=== PATIENT | female | born 1950 | race Caucasian/White ===

== ENCOUNTER 2018-08-18 12:23 | Inpatient (IN) | payer MEDICARE, OTHER, SELFPAY ==
[2018-08-14 13:01] VITALS: BMI 32.8
[2018-08-18] VITALS (27 sets, daily range): BP systolic 89–156; BP diastolic 45–85; PULSE 73–92; RESP 12–24; TEMP 35.8–36.7; O2SAT 88–98; BMI 32.8
--- NOTE | 2018-08-18 | DI.RAD.S_ITS ---
PROCEDURE: XR LUMBAR SPINE 2-3V INDICATIONS: L-5 S1 TLIF TECHNIQUE: 2 views of the lumbar spine were acquired. COMPARISON: [facility] [place], CR, XR LUMBAR SPINE 2 OR 3 VIEWS, 07/24/2018, 15:09. FINDINGS: Intraoperative images demonstrating L5-S1 posterior fixation is present. There is good anatomic alignment. Hardware appears intact. IMPRESSION: L5-S1 fixation as above. Dictated by: Sarah Abarca M.D. on 08/18/2018 at 18:21 Approved by: Sarah Abarca M.D. on 08/18/2018 at 18:22
--- NOTE | 2018-08-18 14:46 | PM.PREOP ---
Pre-operative Note Interval Note Pre-op Check: Yes History & Physical Reviewed by Physician, Yes Exam Performed and Yes History & Physical exam performed today by Physician Changes: No
[2018-08-18] MEDS: CEFAZOLIN 2 GM/100 ML FROZ.PIGGY IV ×2 (15:20→22:56)
--- NOTE | 2018-08-18 16:01 | SUR.OPER ---
Prone on spine table, head in foam head support, padded chest and pelvic supports, gel pad at knees, lower legs supported by pillows; nipples, genitalia and toes free of pressure, arms secured on foam padded arm boards at <90 degrees abduction. Tape over blanket at thigh secured to table.
[2018-08-18] MEDS: BUPIVACAINE 0.25% W/ EPI VIAL 30 ML INJ (16:09)
[2018-08-18] MEDS: BUPIVACAINE LIPOSOME 266 MG/20 ML VIAL INJ (16:09)
[2018-08-18] MEDS: ACETAMINOPHEN IV 1,000 MG/100 ML VIAL 400 MG IV (17:25)
--- NOTE | 2018-08-18 17:45 | PM.OP.1 ---
Operative Date/Time/Diagnoses Date of procedure: 08/18/18 Time of procedure: 15:46 Pre-op diagnosis: 1. L5-S1 spondylolisthesis 2. L4-5, L5-S1 spinal stenosis 3. L4-5, L5-S1 spondylosis with radiculopathy Post-op diagnosis: same Procedure & Clinicians Procedure: 1. L5-S1 Postero-lateral and posterior interbody fusion 2. L5-S1 interbody cage placement. 3. L5-S1 decompressive laminectomy with bilateral facetecomies 4. L5-S1 Posterior non-segmental instrumentation 5. L4-5 right hemilainectomy 6. [place] of bone marrow from iliac crest 7. Utilization of microsurgical technique and operating microscope Same procedure as scheduled: Yes Indications: Patient has been having chronic back pain and worsening lumbar radiculopathy. Patient failed multiple conservative management with worsening pain weakness and numbness in her lower extremity. Patient has been having difficulty performing activity of daily living. After discussing risks benefits of treatment options, patient elected proceed with surgery. Surgeon: Mendoza Wilkins Bridge Toll Collector: Galilea Nicole Click Yes if Unassisted: No Anesthesia Type: General Operative Notes Closure Type: primary Specimen(s): none sent Implants & Drains: Globus revolve screws, Rise cage Estimated Blood Loss (mL): 50 Blood products transfused: none Procedure in detail: Patient was seen in the preoperative area. Risks and benefits of the surgery was discussed with the patient. Informed consent was obtained from the patient and placed in the chart. Surgical site was marked. Patient was taken to the operative room. General anesthesia was administered. Prophylactic antibiotic was given to the patient less than 30 min before the incision was made. Patient was placed into a prone position on the Ricky table. Patient's back was then prepped and draped in the sterile fashion. Time-out was performed at this time. Using AP and lateral C-arm imaging the interval between L4-5 L5-S1 was identified and marked on patient's back. A 2 inch incision 2 in from midline was made on the right side first. The fascia was incised in line with skin incision. Globus MARS retractors was placed inside the incision and docked onto the L5 lamina. Using microsurgical technique and operating microscope, a L5 laminectomy and L5-S1 facetectomy was performed using a Kerrison rongeur. The disc space at L5-S1 was identified. And a total diskectomy was performed at L5-S1 level. The endplates were decorticated using a rasp and shaver. The total diskectomy and decortication was performed at L5-S1 level in order to to accomplish a L5-S1 fusion. The local bone from the laminectomy and facetectomy was saved for local bone grafting. After the total diskectomy and decortication was completed, Globus viacell bone graft material was combined with local bone that was harvested earlier. At this time, a separate skin is incision was made over the iliac crest. A Jamshidi needle was inserted into the iliac crest through a separate skin incision. 5 cc of bone marrow aspiration was obtained through the separate skin incision using a Jamshidi needle from the iliac crest. The bone marrow aspiration was combined with local bone and the via cell bone grafting material. The bone grafting material was placed into the L5-S1 interbody space along with a expandable cage. The cage was expanded to its maximum height using the torque limiting screwdriver. At this time the MARS retractor was redirected over the L5 lamina. Using microsurgical technique and operating microscope, a L4-5 heminectomy was performed using the Kerrison rongeur. The ligamentum flavum was also resected at the side of the hemilaminectomy for further decompression of the epidural space. At this time a mirror image incision was made on the left side. The fascia was incised in line with the skin incision. Globus MARS retractor was inserted and docked onto the L5-S1 posterolateral gutter. Using the power drill, posterior-lateral decortication was performed at L5-S1 level until bleeding cortical bone was identified. The remaining bone grafting material was placed into the L5-S1 posterior lateral gutter he order to accomplish posterolateral fusion at the L5-S1 level. Using the double C-arm technique, pedicle screws were placed into the L5 and S1 pedicles bilaterally. This was done by placing the Jamshidi needle into the pedicles, then placing the guidewires over the Jamshidi needle, and finally placing the cannulated screws over the guidewires bilaterally. After the pedicle screws were placed, 2 titanium rods was locked into the heads of the pedicle screws using locking caps and torque limiting screwdriver.After all the hardware was placed, and confirmed with AP and lateral C-arm imaging, the wound was then irrigated with sterile normal saline and packed with Ray-Marissa gauze for 3 min to accomplish hemostasis. After the gauze was removed the deep fascia was closed with #1 Vicryl suture. The subcutaneous layer was closed with 2-0 Vicryl. The skin was closed with skin javi.Patient tolerated the procedure well. There were no complications. Complications: none Condition: stable Disposition: PACU Plan for aftercare: Admit to inpatient hospital
[2018-08-18] MEDS: fentaNYL 100 MCG/2 ML INJ 50 MCG IV ×2 (17:58→18:32)
[2018-08-18] MEDS: LORazepam 2 MG/ML SYRINGE 0.5 MG IV (18:38)
[2018-08-18] MEDS: LACTATED RINGERS 1,000 ML 42 ML IV (18:45)
[2018-08-18] MEDS: LACTATED RINGERS 500 ML 1000 ML IV (18:46)
[2018-08-18] MEDS: hydrOXYzine 50 MG/ML INJ 25 MG IM (19:10)
--- NOTE | 2018-08-18 19:24 | SUR.PHASEI ---
PACU stay with low BP's versus preop and also restless behavior. Reported tenseness to back that was addressed with Lorazepam, Vistaril and some Fentanyl. BPs also addressed with fluid bolus. BP Readings did increase and pain at 4. On and off o2. Discussed with Dr Raya and due to essentially stable course of VS in PACU will transfer to AC now.
[2018-08-18] MEDS: SODIUM CHLORIDE 0.9% 1,000 ML 100 ML IV (19:59)
--- NOTE | 2018-08-18 20:16 | RT ---
BREATH SOUNDS ARE CLEAR. RR = 16.
[2018-08-18] MEDS: ONDANSETRON 4 MG/2 ML INJ IV (20:32)
--- NOTE | 2018-08-18 21:22 | PC.ADMIT ---
[facility] Admission Note: The patient,Shannon Vanegas,68 y/o, was given written information regarding hospital policies, unit procedures and contact persons. Patient's smoking status: Current every day smoker. Vital Signs - 8 hr 08/18/18 17:53 08/18/18 17:58 08/18/18 18:03 Temperature 96.5 F L Pulse Rate 90 90 82 Respiratory Rate 20 18 15 Blood Pressure 101/54 L 108/62 108/51 L Pulse Oximetry 88 L 93 97 08/18/18 18:07 08/18/18 18:12 08/18/18 18:18 Temperature Pulse Rate 76 78 84 Respiratory Rate 12 16 20 Blood Pressure 94/50 L 112/58 L 106/50 L Pulse Oximetry 96 94 92 08/18/18 18:22 08/18/18 18:27 08/18/18 18:32 Temperature Pulse Rate 84 76 78 Respiratory Rate 20 24 18 Blood Pressure 97/54 L 94/45 L 94/51 L Pulse Oximetry 98 98 95 08/18/18 18:38 08/18/18 18:47 08/18/18 18:52 Temperature 96.6 F L Pulse Rate 80 84 82 Respiratory Rate 14 20 20 Blood Pressure 89/49 L 94/47 L 91/52 L Pulse Oximetry 97 96 94 08/18/18 18:57 08/18/18 19:03 08/18/18 19:08 Temperature Pulse Rate 84 88 80 Respiratory Rate 16 20 15 Blood Pressure 92/49 L 90/52 L 102/64 Pulse Oximetry 94 92 91 08/18/18 19:12 08/18/18 19:20 08/18/18 19:23 Temperature 96.5 F L Pulse Rate 84 84 86 Respiratory Rate 20 20 20 Blood Pressure 104/65 117/68 119/49 L Pulse Oximetry 94 93 94 08/18/18 19:35 08/18/18 20:05 08/18/18 20:13 Temperature 97.8 F 97.2 F L Pulse Rate 77 73 Respiratory Rate 16 16 Blood Pressure 96/47 L 124/58 L Pulse Oximetry 93 94 96 08/18/18 20:14 08/18/18 20:35 Temperature 98.1 F Pulse Rate 85 Respiratory Rate 16 Blood Pressure 117/54 L Pulse Oximetry 96 94 Pt arrived to floor via bed from PACU with rns. Pt awake, sleepy but arouses to voice. Pt given direction on all hospital procedures. Pt drank some water then wanted some pudding and then tried to get up as she stated she wanted to dangle her legs, and pt became nauseous. given zofran and pt laid back down. Pt has oxygen on 1L nc, she takes it off frequently and itches her nose and sometimes forgets to put it ebenezer k on. pulse ox remained on. pt vss. Pt answered all admission questions. bed alarm on, fan provided, will continue to monitor pt for safety.
[2018-08-18] MEDS: ACETAMINOPHEN 325 MG TABLET 650 MG PO (22:53)
[2018-08-18] MEDS: OXYCODONE IR 10 MG TABLET PO (22:53)
[2018-08-19] VITALS (9 sets, daily range): BP systolic 109–134; BP diastolic 56–70; PULSE 16–90; RESP 16–18; TEMP 36–37.6; O2SAT 91–97
[2018-08-19] MEDS: ACETAMINOPHEN 325 MG TABLET 650 MG PO ×3 (04:18→17:03)
[2018-08-19] MEDS: SODIUM CHLORIDE 0.9% 1,000 ML 100 ML IV (06:16)
[2018-08-19] MEDS: PANTOPRAZOLE 40 MG TABLET PO (06:16)
[2018-08-19] MEDS: CEFAZOLIN 2 GM/100 ML FROZ.PIGGY IV (06:38)
--- NOTE | 2018-08-19 07:56 | PM.PNPO.1 ---
Subjective Date Patient Seen: 08/19/18 Time Patient Seen: 07:56 Interval history: Patient is postop day 1. Status post lami/fusion by Dr. Wilkins. Has been up to the bedside commode to go to the restroom. Pain tolerable. Still some tingling and right foot. Patient plans to go home after discharge but she lives alone. Exam Vital Signs (past 8 hours): - 08/19/18 00:20 08/19/18 04:17 Temperature 97.9 F 98.0 F Pulse Rate 90 16 L Respiratory Rate 16 16 Blood Pressure 134/65 123/67 Pulse Oximetry 92 94 Oxygen Delivery Method Room Air Oxygen Flow Rate 0 Narrative Exam Narrative: Patient in bed. Appears comfortable. Alert orient x3. Back dressing clean dry and intact. Bilateral calves soft and nontender. Tingling in in the right foot. Full sensation in left foot. 5/5 BLE strength. Objective Labs Result Diagrams: 08/19/18 05:58 Labs: Laboratory Results - last 24 hr 08/19/18 05:58 Hgb 12.0 Hct 36.0 Assessment & Plan Post-op Postoperative Procedures Operation Date: 08/18/18 14:45 Actual Procedures Side Surgeon p L4-5 Right hemilaminectomy, L5-S1 TLIF w/Posterior Instru Mendoza Wilkins MD Postop day 1. Ambulate with physical therapy today. Continue pain medication as needed. Plans for the patient to be even Tuyet discharged home but she may need to go to SNF if she is slow to ambulate. Patient lives alone.
--- NOTE | 2018-08-19 09:02 | CM.DANOTE ---
Discharge Planning Assessment Continued: Patient is a 68yr old female admitted to [facility] for lami/fusion performed by Dr. Wilkins on 08-19-18. PCP is Dr. Rosa Conner at [facility]. Primary payor is 1)Medicare 2)[employer]. Met with patient explained CM/SW role. Patient resting in bed comfortably POD#1. Therapy scheduled to see patient today. Patient reports that she resides alone but has plenty of support. Patient completely I with ADL's prior to surgery. Patient reports that she has all needed DME for home use. Patient preference is home. Patient aware of SNF option if recommend but again prefers home. Patient does have 5 stairs to enter her residence but does have railing. Spoke with ASSESSMENT NURSE whom reports patient up to [facility] today. P: Pending. Patient prefers home when medically stable. Patient does not feel like she would be prepared to d.c today. Patient aware that if anything changes or if she does poorly with therapy that SNF is option. Discharge Planning/Care Management CM Discharge Assessment Start: 08/19/18 08:58 Freq: Status: Active Protocol: Document 08/19/18 08:58 KJS (Rec: 08/19/18 09:02 KJS [id number]) Discharge Planning Assessment Assigned Restrooms Or Lounges Maid YAYA Castillo Contact Information Torsten Rowell [phone] ( son) Advance Directives? No: I'm working on it Advance Directives on File No History Provided By Patient Has Patient been admitted in last 30 No days? Prior Living Arrangements Mobile home Household Members none Type of transporation used prior to Drives own vehicle admit Independent with ADL's Yes Is patient alert and oriented? Yes Caregiver for Another No DME Already Rented / Owned FWW / Walker Cane Barriers to Discharge No Comment Pending therapy evaluation. Discharge Plan Home Transportation Arrangement Patient has family/support that can provide transport. Additional Comment Patient prefers home. Therapy evaluations currently pending. Whiteboard Updated in Patient Room with Yes name and ext. # of Restrooms Or Lounges Maid Review Status In Process Please Provide Date Initial DC 08/19/18 Assessment Was Performed Next Review Type Continued Stay Review Pre-Anesthesia Assessment Start: 08/14/18 13:01 Freq: Status: Complete Protocol: Document 08/14/18 13:01 CAB (Rec: 08/14/18 13:49 CAB [id number]) Pre-Anesthesia Assessment Patient Also Known As Harmon (AKA) Patient Information Reviewed Via Phone Assessment Assessment Completed With Patient Lab Results BMP/CMP CBC EKG Primary Care Provider Rosa Conner Medical Clearance Received Yes Seen Specialist in Last 12 Months Yes Specialist Seen [facility]er [employer]iture Orthopedist Comment PCP clearance 08/01/18 to med records to be scanned to chart Primary Language French Director Marketing Required No Height 165.1 cm Weight 89.358 kg Body Mass Index (BMI) 32.8 Hearing Ability Normal Visual Assist Glasses Dentition Type Teeth, Natural Present Teeth, Missing Dental Implants Barriers to Learning None Other Aids No Hx Anesthesia Reactions No: I'm slow to wake up Hx Family Anesthesia Reaction No Hx Malignant Hyperthermia No Hx Blood Transfusions No Anesthesia Review Requested No Resource Development Director No alcohol intake current alcohol intake frequency a few times a month Smoking Status Current every day smoker Tobacco type cigarettes Smoking cigarettes per day 15 how long ago did patient quit smoking Has been smoking x 50 years Substance Use Type does not use Pain Present Pain Reported Musculoskeletal Symptoms Abnormal Gait Back Pain Difficulty Walking Joint Pain Numbness Radiating Pain into Limb History of Falling (Recent or History of No ) Patient is completely paralyzed or No completely immobile Mental Status Oriented to own ability Is patient on oxygen? No Does patient have MOY/SOB No Hx Sleep Apnea No Suspected Sleep Apnea No Currently Taking a Beta Sofy No Can You Climb a Flight of Stairs Without Yes SOB Hx Chest Pain No Hx SOB No Hx Syncope or Dizziness No Anti-Coagulant Therapy No Has a Truck Greaser No Cardiac Testing No Hx Pacemaker/ICD No Pacemaker Rep Required? No Cardiac Clearance Received Not Applicable Diet Type At Home Regular dysphagia No Genitourinary Symptoms Hematuria Urinary Catheter Present No Hx Urinary Self Catheterization No Comment Hematuria, chronic Diabetes Yes HgbA1C 6.5 Date 08/01/18 Patient No Lactating No Hx Drug Resistant Organism No Presence of External or Internal Medical No Devices Have you traveled outside the [facility] States in the last 30 days? Marital Status / Lives With none Prior Living Arrangements Mobile home Number of Floors (Floors) One Floor Number of Stairs To Enter/Railing? 5 stairs, railing present Support System Family Friend(s) Does the Patient Have Assistance After Yes Surgery Patient Discharge Plan Description Return Home Comment Pt advised 2-3 day length stay per surgeon's office Feels Safe in Current Environment Yes Been Physically Hurt or Threatened By a No Person in Current Environment Do you have thoughts of harming yourself None or others? Are you currently considering suicide? No Do you have a plan to hurt yourself or No Plan others? Do You Have Any Spiritual Beliefs That No May Affect Your HC Choices? Do You Have Any Cultural Practices That No May Affect Your HC Choices? Comment Pro Who Can We Speak to About Patient's Care Family, friends Identifying Code for Release of Patient Declines to issue Information Health Care Proxy/Next of Kin Torsten Rowell (son) Health Care Proxy Emergency Contact Name Irineo Rowell (son) Emergency Contact Advance Directives? No: I'm working on it Advance Directives on File No Requested Patient Bring Advanced Not Applicable Directives DOS Power of Carpenter Mold No PAC Instructions Durable medical equipment Medications to take/avoid Nasal antibiotic No ETOH/petroleum product on skin DOS NPO Post-op transportation Pre-surgical wash Sturdy shoes/comfortable clothes Do not bring valuables and remove jewelry
[2018-08-19] MEDS: LISINOPRIL 10 MG TABLET PO (09:15)
[2018-08-19] MEDS: ESTROGENS, CONJUGATED 0.3 MG TABLET PO (09:15)
[2018-08-19] MEDS: DOCUSATE 100 MG CAPSULE PO ×2 (09:15→20:18)
[2018-08-19] MEDS: AMLODIPINE 5 MG TABLET PO (09:15)
[2018-08-19] MEDS: hydrOXYzine pamoate 25 MG CAPSULE PO ×2 (09:16→17:03)
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
[2018-08-19] MEDS: OXYCODONE IR 10 MG TABLET PO ×3 (11:52→20:19)
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
--- NOTE | 2018-08-19 14:58 | PT.IPTN ---
Current Diagnoses Spondylolisthesis, lumbosacral region (08/18/18) Other spondylosis with radiculopathy, lumbar region (08/18/18) Spinal stenosis, lumbar region without neurogenic claudication (08/18/18) Surgery Performed Operation Date: 08/18/18 14:45 Actual Procedures p L4-5 Right hemilaminectomy, L5-S1 TLIF w/Posterior Angella Wilkins MD Physical Therapy Treatment Note M2 PT-IP Current Condition Start: 08/19/18 11:49 Freq: NEEDED Status: Active Protocol: Document 08/19/18 10:26 AB (Rec: 08/19/18 12:01 AB [id number]) Physical Therapy Current Condition Current Condition Evaluation Date 08/19/18 Treatment Diagnosis s/p L5S1 fusion, laminectomy, L4-5 hemilaminectomy; difficulty in walking Onset Date 08/18/18 Precautions Lumbar Precautions Log Roll No Twisting Limit Bending Lifting Restriction of 10 lbs Gait Belt above Incisional Area M3 PT-IP Subjective Start: 08/19/18 11:49 Freq: NEEDED Status: Active Protocol: Document 08/19/18 15:52 AB (Rec: 08/19/18 15:56 AB [id number]) Subjective Physical Therapy Visit Type Type Treatment Note Visit Start Time 14:58 Visit Stop Time 15:13 Total Visit Minutes 15 Number of HYDROELECTRIC PRODUCTION TECHNICIAN Visits 0 Physical Therapy Visit Comments Patient Comments pt agreeable to do PT Therapy Pain Assessment Pain When Pain Assessed During Mobility Pain Present Pain Present Pain Reported Location Back Intensity 8 Scale Used Numeric (1 - 10) Description With Movement Pain Management Techniques Re-positioning Timing of Activity with Medications M4 PT-IP Mobility and Gait Start: 08/19/18 11:49 Freq: NEEDED Status: Active Protocol: Document 08/19/18 15:52 AB (Rec: 08/19/18 15:56 AB [id number]) PT-Bed Mobility Assessment Rolling Type of Rolling Log Rolling Level of Assist Standby Assistance Sit to Supine Sit to Supine Standby Assistance PT-Transfer Assessment Sit to and From Stand Sit to and from Stand Standby Assistance Equipment Transfer Assistive Device Gait Belt Front Wheeled Walker Orthotic/Prosthetic Devices or Brace: No Gait Assessment Gait Gait Assistance Required: Standby Assistance Distance (Feet) 250 Able to Maintain Weight Bearing Status Yes During Gait Assistive Devices Assistive Device Gait Belt Front Wheeled Walker Orthotic/Prosthetic Devices or Brace: No Gait Deviations General Gait Pattern Antalgic Factors Limiting Gait Function Factors Limiting Gait Function Decreased Activity Tolerance Decreased Sensation Decreased Strength Limited Range of Motion Pain Poor Balance Stair Climbing Assessment Evaluation Level of Assist On Stairs Standby Assistance Devices Stair Climbing Assistive Devices Left Railing Technique/Endurance Stair Climbing Direction Ascend and Descend Stair Climbing Technique Step to Step Number of Steps Climbed 3 Query Text: Stair Climbing Set # Repetitions (reps) 2 Comments Stair Climbing Comments pt hold on to L rail with B hands M5 PT-IP Objective Assessments Start: 08/19/18 11:49 Freq: NEEDED Status: Active Protocol: Document 08/19/18 10:26 AB (Rec: 08/19/18 12:01 AB [id number]) Orientation Orientation/Cognition Level of Alertness Alert Orientation Name Age Birthday Month Date Year Day of Week Place Situation Safety Awareness Understands Safety Issues Gross Range of Motion Lower Extremity ROM Assessment Within Functional Limits Strength Lower Extremity Strength Assessment Within Functional Limits Sensation Assessment Sensation Gross Sensation Right LE Impaired Sensation Description Tingling Muscle Tone Muscle Tone WNL Yes M6 PT-IP Treatment Start: 08/19/18 11:49 Freq: NEEDED Status: Active Protocol: Document 08/19/18 15:52 AB (Rec: 08/19/18 15:56 AB [id number]) Physical Therapy Treatment Education Education Provided Precautions Safety M7 PT-IP Assessment and Plan Start: 08/19/18 11:49 Freq: NEEDED Status: Active Protocol: Document 08/19/18 15:52 AB (Rec: 08/19/18 15:56 AB [id number]) PT Summary Assessment and Plan Potential Rehabilitation Potential Good Summary Impairments Pain ROM Strength Balance Sensation Bed Mobility Transfers Gait Activity Tolerance Progress Towards Goals Progressing Toward Goals Assessment Summary Pt doing well with mobility and able to do ambulation and stair climbing with SBA and cues for safety. pt may go home when medically stable and will have friends and family to assist her when needed. Goals Bed Mobility Goal Independent Transfer Goal Independent Gait Goal Independent Gait Distance 250 Other Goals up/down 5 steps with L rail ascending Days to Meet Goals 3 Frequency of Treatment Frequency Of Treatment Twice a Day Treatment Plan Physical Therapy Treatment Plan Bed Mobility Training Transfer Training Gait Training Therapeutic Exercise Balance Retraining Post Op Education Discharge Planning Hot or Cold Pack Neuromuscular Re-ed Coordination Retraining Manual Therapy Other Recommendations and Next Treatment ambulation, stair climbing , Focus bed mobility Recommendations To Nursing Amount of Assist Needed Standby Assistance Discharge Recommendations PT Discharge Recommendations Home with Assistance
[2018-08-19] MEDS: SENNOSIDES 8.6 MG TABLET 17.2 MG PO (20:18)
[2018-08-19] MEDS: AMITRIPTYLINE 25 MG TABLET PO (20:19)
[2018-08-19] MEDS: FENOFIBRATE 48 MG TABLET PO (20:19)
[2018-08-19] MEDS: ATORVASTATIN 20 MG TABLET 80 MG PO (20:19)
--- NOTE | 2018-08-19 21:03 | PC.NURSE ---
Assumed care of pt from outgoing shift at 1500 this day. Pt awake. had been walking with pt and reported 6/10 pain, but wanted to wait for pain medication until dinner time as it sometimes makes her nauseous she thinks. pt states as long as she doesn't move too much then she does ok. Pt sitting in bed. one assist with walker to BR has been steadily getting better with bed mobility. pt ambulates steady gait. she states walking is the most comfortable thing. pt wanted to eat dinner in bed as she was tired from being up in chair for a while today. Pt given pain meds. per JAN. tolerated, no nausea reported. Pt compliant with nursing assessments. dressing to back c.d.i. not yet changed. Pt uses call light. belongings within reach. bed alarm on for safety. will continue to monitor pt for safety. 2030-pain meds administered with evening meds, pt ate some pudding. tolerated, will continue to monitor.
[2018-08-20] VITALS (7 sets, daily range): BP systolic 101–117; BP diastolic 52–79; PULSE 76–85; RESP 14–18; TEMP 36.2–37.2; O2SAT 90–97
[2018-08-20] MEDS: hydrOXYzine pamoate 25 MG CAPSULE PO ×2 (00:11→05:02)
[2018-08-20] MEDS: OXYCODONE IR 10 MG TABLET PO ×6 (00:11→21:35)
[2018-08-20] MEDS: PANTOPRAZOLE 40 MG TABLET PO (06:39)
--- NOTE | 2018-08-20 07:24 | PM.PNPO.1 ---
Subjective Date Patient Seen: 08/20/18 Time Patient Seen: 07:24 Interval history: POD #2 L4-5 hemilaminectomy, L5-S1 TLIF with Dr. Wilkins. Her pain is well controlled. She notes difficulty with log rolling and getting out of bed. She is urinating on her own. She has been having some nausea with oxycodone. Exam Vital Signs (past 8 hours): - 08/19/18 23:35 08/20/18 04:55 Temperature 99.4 F 98.9 F Pulse Rate 84 84 Respiratory Rate 17 18 Blood Pressure 111/56 L 110/72 Pulse Oximetry 94 94 Oxygen Delivery Method Room Air Oxygen Flow Rate 0 Narrative Exam Narrative: Patient lying in bed in no acute distress. She is alert and oriented x3. Calves are soft, compressible, and nontender bilaterally. She is able to actively dorsiflex and plantarflex. Objective Labs Result Diagrams: 08/19/18 05:58 Assessment & Plan Post-op (1) S/P lumbar fusion: Current Visit: Yes Status: Acute Postoperative Procedures Operation Date: 08/18/18 14:45 Actual Procedures Side Surgeon p L4-5 Right hemilaminectomy, L5-S1 TLIF w/Posterior Instru Mendoza Wilkins MD POD #2 L4-5 hemilaminectomy, L5-S1 TLIF with Dr. Wilkins. Continue current pain control. Continue ambulating with PT. Plan to discharge home tomorrow with Zofran, Vistaril, and oxycodone. Patient would benefit from continued physical therapy and pain control and likely discharge home tomorrow.
[2018-08-20] MEDS: DOCUSATE 100 MG CAPSULE PO ×2 (08:12→21:37)
[2018-08-20] MEDS: ESTROGENS, CONJUGATED 0.3 MG TABLET PO (08:13)
[2018-08-20] MEDS: ACETAMINOPHEN 325 MG TABLET 650 MG PO (08:14)
[2018-08-20] MEDS: SODIUM CHLORIDE 0.9% FLUSH 10 ML IV (09:48)
--- NOTE | 2018-08-20 11:45 | PT.IPTN ---
Current Diagnoses Spondylolisthesis, lumbosacral region (08/18/18) Other spondylosis with radiculopathy, lumbar region (08/18/18) Spinal stenosis, lumbar region without neurogenic claudication (08/18/18) Arthrodesis status (08/18/18) Surgery Performed Operation Date: 08/18/18 14:45 Actual Procedures p L4-5 Right hemilaminectomy, L5-S1 TLIF w/Posterior Angella Wilkins MD Physical Therapy Treatment Note M2 PT-IP Current Condition Start: 08/19/18 11:49 Freq: NEEDED Status: Active Protocol: Document 08/19/18 10:26 AB (Rec: 08/19/18 12:01 AB [id number]) Physical Therapy Current Condition Current Condition Evaluation Date 08/19/18 Treatment Diagnosis s/p L5S1 fusion, laminectomy, L4-5 hemilaminectomy; difficulty in walking Onset Date 08/18/18 Precautions Lumbar Precautions Log Roll No Twisting Limit Bending Lifting Restriction of 10 lbs Gait Belt above Incisional Area M3 PT-IP Subjective Start: 08/19/18 11:49 Freq: NEEDED Status: Active Protocol: Document 08/20/18 09:30 GGD (Rec: 08/20/18 11:45 GGD [id number]) Subjective Physical Therapy Visit Type Type Treatment Note Visit Start Time 08:55 Visit Stop Time 09:30 Total Visit Minutes 35 Number of TEXTILE DYER Visits 1 Physical Therapy Visit Comments Patient Comments Pt willing to get up. Therapy Pain Assessment Pain When Pain Assessed At Rest Pain Present Pain Present Pain Reported Location Back Intensity 4 Scale Used Numeric (1 - 10) Pain Management Techniques Apply Cold Re-positioning Timing of Activity with Medications M4 PT-IP Mobility and Gait Start: 08/19/18 11:49 Freq: NEEDED Status: Active Protocol: Document 08/20/18 09:30 GGD (Rec: 08/20/18 11:45 GGD [id number]) PT-Bed Mobility Assessment Rolling Type of Rolling Log Rolling Level of Assist Standby Assistance Supine to Sit Supine to Sit Contact Guard Assistance Scooting Scooting to Edge of Bed Standby Assistance PT-Transfer Assessment Sit to and From Stand Sit to and from Stand Standby Assistance Equipment Transfer Assistive Device Gait Belt Front Wheeled Walker Orthotic/Prosthetic Devices or Brace: No Transfers Transfer Destination Chair Gait Assessment Gait Gait Assistance Required: Standby Assistance Distance (Feet) 230 Able to Maintain Weight Bearing Status Yes During Gait Assistive Devices Assistive Device Gait Belt Front Wheeled Walker Orthotic/Prosthetic Devices or Brace: No Gait Deviations General Gait Pattern Antalgic Factors Limiting Gait Function Factors Limiting Gait Function Decreased Activity Tolerance Decreased Strength Pain Comments Gait Comments Pt C/O nausea after gait. BP after activity in sitting 123/ 63 M5 PT-IP Objective Assessments Start: 08/19/18 11:49 Freq: NEEDED Status: Active Protocol: Document 08/19/18 10:26 AB (Rec: 08/19/18 12:01 AB [id number]) Orientation Orientation/Cognition Level of Alertness Alert Orientation Name Age Birthday Month Date Year Day of Week Place Situation Safety Awareness Understands Safety Issues Gross Range of Motion Lower Extremity ROM Assessment Within Functional Limits Strength Lower Extremity Strength Assessment Within Functional Limits Sensation Assessment Sensation Gross Sensation Right LE Impaired Sensation Description Tingling Muscle Tone Muscle Tone WNL Yes M6 PT-IP Treatment Start: 08/19/18 11:49 Freq: NEEDED Status: Active Protocol: Document 08/20/18 09:30 GGD (Rec: 08/20/18 11:45 GGD [id number]) Physical Therapy Treatment Education Education Provided Precautions Safety M7 PT-IP Assessment and Plan Start: 08/19/18 11:49 Freq: NEEDED Status: Active Protocol: Document 08/20/18 09:30 GGD (Rec: 08/20/18 11:45 GGD [id number]) PT Summary Assessment and Plan Summary Assessment Summary Pt needed increase in cueing. She improved with gait. She did have increase in nausea after ambulation. She needs improve with bed mobility and log roll. Frequency of Treatment Frequency Of Treatment Twice a Day Treatment Plan Other Recommendations and Next Treatment ambulation, stair climbing , Focus bed mobility Recommendations To Nursing Amount of Assist Needed Standby Assistance Discharge Recommendations PT Discharge Recommendations Home with Assistance
[2018-08-20] MEDS: ONDANSETRON 4 MG ODT PO ×2 (11:58→21:36)
--- NOTE | 2018-08-20 13:25 | OT.IP.TRT ---
Current Diagnoses Spondylolisthesis, lumbosacral region (08/18/18) Other spondylosis with radiculopathy, lumbar region (08/18/18) Spinal stenosis, lumbar region without neurogenic claudication (08/18/18) Arthrodesis status (08/18/18) Surgery Performed Operation Date: 08/18/18 14:45 Actual Procedures p L4-5 Right hemilaminectomy, L5-S1 TLIF w/Posterior Francoiseu - Mendoza Wilkins MD Occupational Therapy Treatment Note M2 OT-IP Current Condition Start: 08/19/18 14:51 Freq: Status: Active Protocol: Document 08/19/18 14:46 PJM (Rec: 08/19/18 15:05 PJM [id number]) Occupational Therapy Current Condition Current Condition Evaluation Date 08/19/18 Treatment Diagnosis decreased self care, functional mobility s/p L4-5 hemilami, L5-S1 PLIF Diagnosis Onset Date 08/18/18 Post Operative Precautions Lumbar Precautions Log Roll No Twisting Limit Bending Lifting Restriction of 10 lbs Gait Belt above Incisional Area M3 OT- IP Subjective and Pain Start: 08/19/18 14:51 Freq: Status: Active Protocol: Document 08/20/18 13:25 PJM (Rec: 08/20/18 14:51 PJM [id number]) OT- Subjective Occupational Therapy Visit Type Type Treatment Note Visit Start Time 12:45 Visit Stop Time 12:25 Total Visit Minutes 40 Occupational Therapy Visit Comments Patient Comments Pt too nauseous to participate this AM, now states: I am feeling much better now and really want to shower. Patient/Caregiver Goals to go home tomorrow, be able to golf by spring OT Pain Assessment Pain When Pain Assessed After Treatment Pain Present Pain Present Pain Reported Location Back Intensity 4 Scale Used Numeric (1 - 10) Description Aching Acute M4 OT- IP ADL's Start: 08/19/18 14:51 Freq: Status: Active Protocol: Document 08/20/18 13:25 PJM (Rec: 08/20/18 14:51 PJM [id number]) OT ADL-Grooming General Evaluation Grooming Ability Independent Comments OT Grooming Comments after education re: body mechanics OT ADL-Oral Care Comments Oral Care Comments after education re: body mechanics;pt has how counters with vessel sink at home OT ADL-Dressing General Eval Upper Body Dressing Ability Standby Assistance Lower Body Dressing Ability Standby Assistance Areas Needing Assistance Retrieving/Set-up of Clothing Underpants/Brief Assistive Devices Dressing Assistive Devices Gas Systems Worker Comments OT Dressing Comments Pt agreed to try sock aid tomorrow; declines long shoe horn OT ADL-Toileting General Evaluation Toileting Ability Independent Comments OT Toileting Comments provided education re: body mechanics, pt declines toilet paper aid OT ADL-Bathing Bathing Type Bathing Type Shower General Evaluation Bathing Ability Standby Assistance Areas Needing Assistance Retrieving/Setting Up Items Devices Bathing Equipment Long Handled Sponge or Foreclosure Paralegal Held Shower Sprayer Shower Chair with Arms Grab Bars Comments OT Bathing Comments provided education re: body mechanics and use of group billing coordinator with towel to dry lower extremities; pt's sister in law will provide SBA for showering at home M5 OT- IP IADL's Start: 08/19/18 14:51 Freq: Status: Active Protocol: Document 08/19/18 14:46 PJM (Rec: 08/19/18 15:05 PJM [id number]) OT-Instrumental Activities of Daily Living Deficits IADL Deficits Identified Deficits Home Safety Awareness Awareness of Need for Assistance at Home Good Awareness Ability to Problem Solve Emergency Able to Problem Solve Situations Home Safety Comments pt plans ot get [employer] call system Medication Management Medication Management No Deficits Identified Money Management Money Management No Deficits Identified Meal Preparation Meal Preparation Caregiver Provides Assist Meal Preparation Comments family (2 brothers and sisters in law) and friends will assist with grocery shopping and meals PRN Carpenters Carpenters Caregiver Provides Assist Carpenters Comments family and friends to assist PRN Driving Driving Caregiver Provides Assist Driving Comments family and friends to assist until pt able Document 08/20/18 13:25 PJM (Rec: 08/20/18 14:51 PJM [id number]) OT- Bed Mobility Assessment Sit to Supine Sit to Supine Assist Standby Assistance 1 Person Assistance Scooting Scooting to Edge of Bed Independent OT-Transfer Assessment Sit to and From Stand Sit to and from Stand Standby Assistance Technique Transfer Destination Bed Chair Shower Stall Transfer Technique Stand Step Pivot Devices Transfer Assistive Devices Gait Belt Front Wheeled Walker Comments Mobility Comments Pt needs min verbal cues for bed mobility technique OT- Gait Assessment Gait Gait Assistance Required: Contact Guard Assist Distance (Feet) 40 Assistive Devices Assistive Device Gait Belt Front Wheeled Walker Comments Gait Ability Comments no LOB noted OT- Balance Assessment Sitting Balance and Reactions Static Sitting Balance Ability Normal Dynamic Sitting Balance Ability Good Standing Balance and Reactions Static Standing Balance Ability Good Dynamic Standing Balance Ability Good Comments Other Balance Tests/Deviations/Treatment during standing for shower and : lower body dressing M M9 OT- IP Assessment and Plan Start: 08/19/18 14:51 Freq: Status: Active Protocol: Document 08/20/18 13:25 PJM (Rec: 08/20/18 14:51 PJM [id number]) OT Summary Assessment and Plan Summary Progress Towards Goals Progressing Toward Goals Assessment Summary Pt nauseous this AM, but able to progress with dressing and shower training this PM. Pt making good daily progress. Plan 1 additional OT visit tomorrow. ANticipate pt will be able to d/c hoem tomorrow with daily family assist. Goals Days to Meet Goals 1 Frequency of Treatment Frequency Of Treatment Once a Day Treatment Plan OT Treatment Plan ADL Training Functional Mobility Patient/Family Education Discharge Planning Discharge Recommendations OT Discharge Recommendations Home with Assistance Home Equipment Needs family to borrow shower seat for pt use; gave long handled sponge
--- NOTE | 2018-08-20 14:07 | PC.NURSE ---
Day Shift Patient experienced episodes of nausea this AM after breakfast and shortly after working with PT. Pain being managed with PO medications per MD orders. Patient experienced mild hypotension this AM, blood pressure medications were held. O2 dropped to the 90%'s when in the shower, but proceeded to go up to 97% once back in bed. Patient is resting comfortably in bed, will continue to monitor.
--- NOTE | 2018-08-20 14:25 | PT.IPTN ---
Current Diagnoses Spondylolisthesis, lumbosacral region (08/18/18) Other spondylosis with radiculopathy, lumbar region (08/18/18) Spinal stenosis, lumbar region without neurogenic claudication (08/18/18) Arthrodesis status (08/18/18) Surgery Performed Operation Date: 08/18/18 14:45 Actual Procedures p L4-5 Right hemilaminectomy, L5-S1 TLIF w/Posterior Angella Wilkins MD Physical Therapy Treatment Note M2 PT-IP Current Condition Start: 08/19/18 11:49 Freq: NEEDED Status: Active Protocol: Document 08/19/18 10:26 AB (Rec: 08/19/18 12:01 AB [id number]) Physical Therapy Current Condition Current Condition Evaluation Date 08/19/18 Treatment Diagnosis s/p L5S1 fusion, laminectomy, L4-5 hemilaminectomy; difficulty in walking Onset Date 08/18/18 Precautions Lumbar Precautions Log Roll No Twisting Limit Bending Lifting Restriction of 10 lbs Gait Belt above Incisional Area M3 PT-IP Subjective Start: 08/19/18 11:49 Freq: NEEDED Status: Active Protocol: Document 08/20/18 14:25 GGD (Rec: 08/20/18 15:18 GGD [id number]) Subjective Physical Therapy Visit Type Type Treatment Note Visit Start Time 14:00 Visit Stop Time 14:25 Total Visit Minutes 25 Number of RISK PREVENTION ENGINEER Visits 2 Physical Therapy Visit Comments Patient Comments Pt states she wants to walk. Therapy Pain Assessment Pain When Pain Assessed At Rest Pain Present Pain Present Pain Reported Location Back Intensity 5 Scale Used Numeric (1 - 10) Pain Management Techniques Re-positioning Timing of Activity with Medications M4 PT-IP Mobility and Gait Start: 08/19/18 11:49 Freq: NEEDED Status: Active Protocol: Document 08/20/18 14:25 GGD (Rec: 08/20/18 15:18 GGD [id number]) PT-Bed Mobility Assessment Rolling Type of Rolling Log Rolling Level of Assist Standby Assistance Supine to Sit Supine to Sit Standby Assistance Sit to Supine Sit to Supine Standby Assistance Scooting Scooting to Edge of Bed Standby Assistance PT-Transfer Assessment Sit to and From Stand Sit to and from Stand Standby Assistance Equipment Transfer Assistive Device Gait Belt Front Wheeled Walker Orthotic/Prosthetic Devices or Brace: No Transfers Transfer Destination Bed Toilet Gait Assessment Gait Gait Assistance Required: Standby Assistance Distance (Feet) 230 Able to Maintain Weight Bearing Status Yes During Gait Assistive Devices Assistive Device Gait Belt Front Wheeled Walker Orthotic/Prosthetic Devices or Brace: No Gait Deviations General Gait Pattern Antalgic Factors Limiting Gait Function Factors Limiting Gait Function Decreased Activity Tolerance Decreased Strength Pain M5 PT-IP Objective Assessments Start: 08/19/18 11:49 Freq: NEEDED Status: Active Protocol: Document 08/19/18 10:26 AB (Rec: 08/19/18 12:01 AB [id number]) Orientation Orientation/Cognition Level of Alertness Alert Orientation Name Age Birthday Month Date Year Day of Week Place Situation Safety Awareness Understands Safety Issues Gross Range of Motion Lower Extremity ROM Assessment Within Functional Limits Strength Lower Extremity Strength Assessment Within Functional Limits Sensation Assessment Sensation Gross Sensation Right LE Impaired Sensation Description Tingling Muscle Tone Muscle Tone WNL Yes M6 PT-IP Treatment Start: 08/19/18 11:49 Freq: NEEDED Status: Active Protocol: Document 08/20/18 14:25 GGD (Rec: 08/20/18 15:18 GGD [id number]) Physical Therapy Treatment Education Education Provided Precautions Safety M7 PT-IP Assessment and Plan Start: 08/19/18 11:49 Freq: NEEDED Status: Active Protocol: Document 08/20/18 14:25 GGD (Rec: 08/20/18 15:18 GGD [id number]) PT Summary Assessment and Plan Summary Assessment Summary Pt improved with bed mobility. She had improved pain control with mobility. She had no C/O nausea wiht gait. Treatment Plan Other Recommendations and Next Treatment ambulation, stair climbing , Focus bed mobility Recommendations To Nursing Amount of Assist Needed Standby Assistance Discharge Recommendations PT Discharge Recommendations Home with Assistance
[2018-08-20] MEDS: SENNOSIDES 8.6 MG TABLET 17.2 MG PO (21:37)
[2018-08-20] MEDS: FENOFIBRATE 48 MG TABLET PO (21:37)
[2018-08-20] MEDS: AMITRIPTYLINE 25 MG TABLET PO (21:37)
[2018-08-20] MEDS: ATORVASTATIN 20 MG TABLET 80 MG PO (21:37)
[2018-08-20] MEDS: diphenhydrAMINE 25 MG TABLET PO (22:44)
[2018-08-21 00:30] VITALS: BP 104/62; PULSE 90; RESP 17; TEMP 36.8; O2SAT 92
[2018-08-21] MEDS: OXYCODONE IR 10 MG TABLET PO ×3 (02:31→10:04)
[2018-08-21] MEDS: ONDANSETRON 4 MG ODT PO ×2 (02:32→07:15)
[2018-08-21] MEDS: hydrOXYzine pamoate 25 MG CAPSULE PO (02:34)
[2018-08-21 05:15] VITALS: BP 96/67; PULSE 83; RESP 18; TEMP 36.7; O2SAT 92
[2018-08-21] MEDS: PANTOPRAZOLE 40 MG TABLET PO (05:26)
[2018-08-21] MEDS: diphenhydrAMINE 25 MG TABLET PO (05:31)
--- NOTE | 2018-08-21 07:09 | PM.DS.1 ---
History of Present Illness Date Patient Seen: 08/21/18 Time Patient Seen: 07:09 Chief complaint: [id number] L4-5 L5-S1 Narrative: Patient has been having chronic back pain and worsening lumbar radiculopathy. Patient failed multiple conservative management with worsening pain weakness and numbness in her lower extremity. Patient has been having difficulty performing activity of daily living. After discussing risks benefits of treatment options, patient elected proceed with surgery. Patient is seen bedside. Discharge Providers Date of admission: 08/18/18 12:23 Primary care physician: Jarrod Celestin PA-C Consults: 08/18/18 19:45 Consult to Occupational Therapy Evaluate & Treat Comment: Physician Instructions: Evaluate and treat Consult to Physical Therapy Evaluate & Treat Comment: Physician Instructions: Evaluate and Treat Discharge provider: Snehal Drake PA-C Discharge Date: 08/21/18 Summary Discharge Diagnosis: 1. L5-S1 spondylolisthesis 2. L4-5, L5-S1 spinal stenosis 3. L4-5, L5-S1 spondylosis with radiculopathy Hospital Course: Patient was admitted to hospital for the above mentioned procedure. Patient tolerated procedure well with no major complications. Patient transferred to the floor and seen by physical therapy who recommended she be discharge home with outpatient PT. Her pain was well controlled with oxycodone and vistaril. Patient reports she lives alone but has family and friends that will come by and assist her periodically. Patient is stable and ready for discharge on 08/21/18. Calfs are soft, compressible and nontender bilaterally. Lumbar cover site dressing on. Status at Discharge Functional status at discharge: uses cane/walker Overall status at discharge: patient is progressing back to baseline Time Spent with Patient Less than 30 minutes Exam Vital Signs (past 8 hours): - 08/21/18 00:30 08/21/18 05:15 Temperature 98.2 F 98.1 F Pulse Rate 90 83 Respiratory Rate 17 18 Blood Pressure 104/62 96/67 Pulse Oximetry 92 92 Oxygen Delivery Method Room Air Oxygen Flow Rate 0 Narrative Exam Narrative: Patient is AOx3. Patient is laying in bed comfortably without any signs of distress. Radial and dorsalis pedis pulses are 2+ and symmetric. Muscle strength is 5/5 in dorsiflexion,plantarflexion and cell biology scientist bilaterally. Sensation to light touch intact bilaterally in LE. No neurological deficits noted. Lumbar dressing is CDI. Calfs are soft, non tender and compressible bilaterally. Patient denies any chest pain, SOB, fever, chills or vomiting. She reports nausea has improved since yesterday with Zofran. Objective Labs Result Diagrams: 08/19/18 05:58 Discharge Plan Discharge Plan Patient Disposition: Home Discharge Med Rec/Prescriptions Prescriptions: New ondansetron 4 mg Tablet,Disintegrating 4 mg PO Q4HR PRN (Reason: Nausea) Qty: 10 RF: 0 hydroxyzine pamoate 25 mg Capsule 25 mg PO Q4HR PRN (Reason: Nausea And Vomiting) Qty: 50 RF: 0 oxycodone 10 mg Tablet 10 mg PO Q3HR PRN (Reason: Pain, Severe (7-10)) Qty: 40 RF: 0 Continue atorvastatin [Lipitor] 80 mg Tablet 80 mg PO BEDTIME RF: 0 amlodipine 5 mg Tablet 5 mg PO DAILY RF: 0 amitriptyline 25 mg Tablet 25 mg PO BEDTIME RF: 0 lisinopril 10 mg Tablet 10 mg PO DAILY RF: 0 omeprazole 20 mg Capsule,Delayed Release(Dr/Ec) 40 mg PO QAM RF: 0 [id number]-tlrnjysl [Excedrin Migraine] 250-250-65 mg Tablet 1 tab PO Q4-6H PRN (Reason: Migraine Headache) RF: 0 conjugated estrogens [Premarin] 0.3 mg Tablet 0.3 mg PO DAILY RF: 0 fenofibrate 54 mg Tablet 54 mg PO BEDTIME RF: 0 naproxen sodium [Aleve] 220 mg Capsule 220 mg PO BEDTIME RF: 0 naproxen-diphenhydramine [Aleve PM] 220-25 mg Tablet 1 tab PO BEDTIME RF: 0 Follow up/Referrals: Mendoza Wilkins MD [Physician] - 09/01/18 11:00 am (Follow up at [facility] [place] Wilkins at scheduled appointment.) Jarrod Celestin PA-C [Primary Care Provider] - Provider Discharge Instructions Diet: Carb-consistent/Diabetic Activity: Limit bending, lifting and twisting. Use walker for assistance until cleared by PT. Cold/Heat Therapy: Cold compress PRN Skin/Wound/Dressing Care Report to your healthcare provider any signs of infection, such as:: chills, fever, night sweats, increased pain and unusual drainage Dressing: Keep clean and dry. Visit Report/Discharge Packet Instructions: DI for Constipation, Oxycodone, Hydroxyzine, DI for Transforaminal Lumbar Interbody Fusion Visit Report Forms: Stroke Signs & Symptoms Discharge Data Primary Care Provider: Jarrod Celestin Attending Provider: Mendoza Wilkins Admit Date/Time: 08/18/18 12:23 Discharges patient from system. Discharge Date/Time: 08/21/18 10:17
--- NOTE | 2018-08-21 07:24 | P.DS_ITS ---
History of Present Illness Date Patient Seen: 08/21/18 Time Patient Seen: 07:09 Chief complaint: [id number] L4-5 L5-S1 Narrative: Patient has been having chronic back pain and worsening lumbar radiculopathy. Patient failed multiple conservative management with worsening pain weakness and numbness in her lower extremity. Patient has been having difficulty performing activity of daily living. After discussing risks benefits of treatment options, patient elected proceed with surgery. Patient is seen bedside. Discharge Providers Date of admission: 08/18/18 12:23 Primary care physician: Jarrod Celestin PA-C Consults: 08/18/18 19:45 Consult to Occupational Therapy Evaluate & Treat Comment: Physician Instructions: Evaluate and treat Consult to Physical Therapy Evaluate & Treat Comment: Physician Instructions: Evaluate and Treat Discharge provider: Snehal Drake PA-C Discharge Date: 08/21/18 Summary Discharge Diagnosis: 1. L5-S1 spondylolisthesis 2. L4-5, L5-S1 spinal stenosis 3. L4-5, L5-S1 spondylosis with radiculopathy Hospital Course: Patient was admitted to hospital for the above mentioned procedure. Patient tolerated procedure well with no major complications. Patient transferred to the floor and seen by physical therapy who recommended she be discharge home with outpatient PT. Her pain was well controlled with oxycodone and vistaril. Patient reports she lives alone but has family and friends that will come by and assist her periodically. Patient is stable and ready for discharge on 08/21/18. Calfs are soft, compressible and nontender bilaterally. Lumbar cover site dressing on. Status at Discharge Functional status at discharge: uses cane/walker Overall status at discharge: patient is progressing back to baseline Time Spent with Patient Less than 30 minutes Exam Vital Signs (past 8 hours): - 08/21/18 00:30 08/21/18 05:15 Temperature 98.2 F 98.1 F Pulse Rate 90 83 Respiratory Rate 17 18 Blood Pressure 104/62 96/67 Pulse Oximetry 92 92 Oxygen Delivery Method Room Air Oxygen Flow Rate 0 Narrative Exam Narrative: Patient is AOx3. Patient is laying in bed comfortably without any signs of distress. Radial and dorsalis pedis pulses are 2+ and symmetric. Muscle strength is 5/5 in dorsiflexion,plantarflexion and cigarette and filter chief inspector bilaterally. Sensation to light touch intact bilaterally in LE. No neurological deficits noted. Lumbar dressing is CDI. Calfs are soft, non tender and compressible bilaterally. Patient denies any chest pain, SOB, fever, chills or vomiting. She reports nausea has improved since yesterday with Zofran. Objective Labs Result Diagrams: 08/19/18 05:58 Discharge Plan Discharge Plan Patient Disposition: Home Discharge Med Rec/Prescriptions Prescriptions: New ondansetron 4 mg Tablet,Disintegrating 4 mg PO Q4HR PRN (Reason: Nausea) Qty: 10 RF: 0 hydroxyzine pamoate 25 mg Capsule 25 mg PO Q4HR PRN (Reason: Nausea And Vomiting) Qty: 50 RF: 0 oxycodone 10 mg Tablet 10 mg PO Q3HR PRN (Reason: Pain, Severe (7-10)) Qty: 40 RF: 0 Continue atorvastatin [Lipitor] 80 mg Tablet 80 mg PO BEDTIME RF: 0 amlodipine 5 mg Tablet 5 mg PO DAILY RF: 0 amitriptyline 25 mg Tablet 25 mg PO BEDTIME RF: 0 lisinopril 10 mg Tablet 10 mg PO DAILY RF: 0 omeprazole 20 mg Capsule,Delayed Release(Dr/Ec) 40 mg PO QAM RF: 0 [id number] [Excedrin Migraine] 250-250-65 mg Tablet 1 tab PO Q4-6H PRN (Reason: Migraine Headache) RF: 0 conjugated estrogens [Premarin] 0.3 mg Tablet 0.3 mg PO DAILY RF: 0 fenofibrate 54 mg Tablet 54 mg PO BEDTIME RF: 0 naproxen sodium [Aleve] 220 mg Capsule 220 mg PO BEDTIME RF: 0 naproxen-diphenhydramine [Aleve PM] 220-25 mg Tablet 1 tab PO BEDTIME RF: 0 Follow up/Referrals: Mendoza Wilkins MD [Physician] - 09/01/18 11:00 am (Follow up at [facility] [place] with Dr. Wilkins at scheduled appointment.) Jarrod Celestin PA-C [Primary Care Provider] - Provider Discharge Instructions Diet: Carb-consistent/Diabetic Activity: Limit bending, lifting and twisting. Use walker for assistance until cleared by PT. Cold/Heat Therapy: Cold compress PRN Skin/Wound/Dressing Care Report to your healthcare provider any signs of infection, such as:: chills, fever, night sweats, increased pain and unusual drainage Dressing: Keep clean and dry. Visit Report/Discharge Packet Instructions: DI for Constipation, Oxycodone, Hydroxyzine, DI for Transforaminal Lumbar Interbody Fusion Visit Report Forms: Stroke Signs & Symptoms Discharge Data Primary Care Provider: Jarrod Celestin Attending Provider: Mendoza Wilkins Admit Date/Time: 08/18/18 12:23 Discharges patient from system. Discharge Date/Time: 08/21/18 10:17
[2018-08-21 08:10] VITALS: BP 125/68; PULSE 83; RESP 18; TEMP 36.6; O2SAT 92
[2018-08-21] MEDS: LISINOPRIL 10 MG TABLET PO (09:10)
[2018-08-21] MEDS: DOCUSATE 100 MG CAPSULE PO (09:10)
[2018-08-21] MEDS: AMLODIPINE 5 MG TABLET PO (09:10)
[2018-08-21] MEDS: ESTROGENS, CONJUGATED 0.3 MG TABLET PO (09:11)
--- NOTE | 2018-08-21 09:19 | PC.NURSE ---
Pt ready for dc home today. Given paperwork and scripts. Given prune juice for constipation. Pt advised on preventing constipation after dc home.
--- NOTE | 2018-08-21 09:30 | PT.IPTN ---
Current Diagnoses Spondylolisthesis, lumbosacral region (08/18/18) Other spondylosis with radiculopathy, lumbar region (08/18/18) Spinal stenosis, lumbar region without neurogenic claudication (08/18/18) Arthrodesis status (08/18/18) Surgery Performed Operation Date: 08/18/18 14:45 Actual Procedures p L4-5 Right hemilaminectomy, L5-S1 TLIF w/Posterior Angella Wilkins MD Physical Therapy Treatment Note M2 PT-IP Current Condition Start: 08/19/18 11:49 Freq: NEEDED Status: Discharge Protocol: Document 08/19/18 10:26 AB (Rec: 08/19/18 12:01 AB [email or web address]) Physical Therapy Current Condition Current Condition Evaluation Date 08/19/18 Treatment Diagnosis s/p L5S1 fusion, laminectomy, L4-5 hemilaminectomy; difficulty in walking Onset Date 08/18/18 Precautions Lumbar Precautions Log Roll No Twisting Limit Bending Lifting Restriction of 10 lbs Gait Belt above Incisional Area M3 PT-IP Subjective Start: 08/19/18 11:49 Freq: NEEDED Status: Discharge Protocol: Document 08/21/18 09:30 GGD (Rec: 08/21/18 12:20 GGD [id number]) Subjective Physical Therapy Visit Type Type Treatment Note Visit Start Time 09:05 Visit Stop Time 09:30 Total Visit Minutes 25 Number of NUCLEAR SCIENTIST Visits 3 Physical Therapy Visit Comments Patient Comments Pt feeling better and ready to go home. Therapy Pain Assessment Pain When Pain Assessed At Rest Pain Present Pain Present Pain Reported Location Back Intensity 4 Scale Used Numeric (1 - 10) Pain Management Techniques Re-positioning Timing of Activity with Medications M4 PT-IP Mobility and Gait Start: 08/19/18 11:49 Freq: NEEDED Status: Discharge Protocol: Document 08/21/18 09:30 GGD (Rec: 08/21/18 12:20 GGD [id number]) PT-Bed Mobility Assessment Rolling Type of Rolling Log Rolling Level of Assist Standby Assistance Supine to Sit Supine to Sit Standby Assistance Sit to Supine Sit to Supine Standby Assistance Scooting Scooting to Edge of Bed Standby Assistance PT-Transfer Assessment Sit to and From Stand Sit to and from Stand Standby Assistance Equipment Transfer Assistive Device Gait Belt Front Wheeled Walker Orthotic/Prosthetic Devices or Brace: No Transfers Transfer Destination Bed Toilet Comments Mobility Comments bed mobility x 2 with cues for hand placement. M5 PT-IP Objective Assessments Start: 08/19/18 11:49 Freq: NEEDED Status: Discharge Protocol: Document 08/19/18 10:26 AB (Rec: 08/19/18 12:01 AB [id number]) Orientation Orientation/Cognition Level of Alertness Alert Orientation Name Age Birthday Month Date Year Day of Week Place Situation Safety Awareness Understands Safety Issues Gross Range of Motion Lower Extremity ROM Assessment Within Functional Limits Strength Lower Extremity Strength Assessment Within Functional Limits Sensation Assessment Sensation Gross Sensation Right LE Impaired Sensation Description Tingling Muscle Tone Muscle Tone WNL Yes M6 PT-IP Treatment Start: 08/19/18 11:49 Freq: NEEDED Status: Discharge Protocol: Document 08/21/18 09:30 GGD (Rec: 08/21/18 12:20 GGD [id number]) Physical Therapy Treatment Education Education Provided Precautions Safety M7 PT-IP Assessment and Plan Start: 08/19/18 11:49 Freq: NEEDED Status: Discharge Protocol: Document 08/21/18 09:30 GGD (Rec: 08/21/18 12:20 GGD [id number]) PT Summary Assessment and Plan Summary Assessment Summary Pt needed less cueing with bed mobility. She had better pain control with mobility. She was safe and stable with transfer without unsteadiness. Frequency of Treatment Frequency Of Treatment Twice a Day Treatment Plan Other Recommendations and Next Treatment ambulation, stair climbing , Focus bed mobility Recommendations To Nursing Amount of Assist Needed Standby Assistance Discharge Recommendations PT Discharge Recommendations Home with Assistance
--- NOTE | 2018-08-21 09:34 | OT.IP.TRT ---
Current Diagnoses Spondylolisthesis, lumbosacral region (08/18/18) Other spondylosis with radiculopathy, lumbar region (08/18/18) Spinal stenosis, lumbar region without neurogenic claudication (08/18/18) Arthrodesis status (08/18/18) Surgery Performed Operation Date: 08/18/18 14:45 Actual Procedures p L4-5 Right hemilaminectomy, L5-S1 TLIF w/Posterior Angella - Mendoza Wilkins MD Occupational Therapy Treatment Note M2 OT-IP Current Condition Start: 08/19/18 14:51 Freq: Status: Active Protocol: Document 08/19/18 14:46 [facility] (Rec: 08/19/18 15:05 [facility]JM [id number]) Occupational Therapy Current Condition Current Condition Evaluation Date 08/19/18 Treatment Diagnosis decreased self care, functional mobility s/p L4-5 hemilami, L5-S1 PLIF Diagnosis Onset Date 08/18/18 Post Operative Precautions Lumbar Precautions Log Roll No Twisting Limit Bending Lifting Restriction of 10 lbs Gait Belt above Incisional Area M3 OT- IP Subjective and Pain Start: 08/19/18 14:51 Freq: Status: Active Protocol: Document 08/21/18 09:28 [facility] (Rec: 08/21/18 09:33 [facility] [id number]) OT- Subjective Occupational Therapy Visit Type Type Treatment Note Visit Start Time 08:30 Visit Stop Time 08:40 Total Visit Minutes 10 Occupational Therapy Visit Comments Patient/Caregiver Goals Pt feels ready to go home today. OT Pain Assessment Pain When Pain Assessed At Rest Pain Present Pain Present Denied Pain M4 OT- IP ADL's Start: 08/19/18 14:51 Freq: Status: Active Protocol: Document 08/21/18 09:28 [facility] (Rec: 08/21/18 09:33 [facility] [id number]) OT ADL-Dressing General Eval Lower Body Dressing Ability Standby Assistance Assistive Devices Dressing Assistive Devices Solar Sales Assessor Sock Aid Comments OT Dressing Comments Pt able to use socks aid with good understanding and demonstration. M5 OT- IP IADL's Start: 08/19/18 14:51 Freq: Status: Active Protocol: Document 08/19/18 14:46 [facility] (Rec: 08/19/18 15:05 [facility] [id number]) OT-Instrumental Activities of Daily Living Deficits IADL Deficits Identified Deficits Home Safety Awareness Awareness of Need for Assistance at Home Good Awareness Ability to Problem Solve Emergency Able to Problem Solve Situations Home Safety Comments pt plans ot get [employer] call system Medication Management Medication Management No Deficits Identified Money Management Money Management No Deficits Identified Meal Preparation Meal Preparation Caregiver Provides Assist Meal Preparation Comments family (2 brothers and sisters in law) and friends will assist with grocery shopping and meals PRN Provider Relations Specialist Provider Relations Specialist Caregiver Provides Assist Provider Relations Specialist Comments family and friends to assist PRN Driving Driving Caregiver Provides Assist Driving Comments family and friends to assist until pt able M6 OT- IP Functional Cognition Start: 08/19/18 14:51 Freq: Status: Active Protocol: Document 08/21/18 09:28 [facility] (Rec: 08/21/18 09:33 [facility] [id number]) Cognitive Factors Limiting Selfcare Function Cognitive Ability Level of Alertness Alert Patient Orientation Name Age Birthday Month Date Year Day of Week Place Situation Attention Span Ability Capable of Focused Attention Capable of Sustained Attention Ability to Follow Commands Able to Follow Multi-Step Commands Memory Description No Deficits Noted Safety Awareness No Deficits Noted Problem Solving Ability No deficits Noted Cognitive Comments Cognitive Assessment Comments Good safety with all back precautions. M7 OT- IP Mobility and Balance Start: 08/19/18 14:51 Freq: Status: Active Protocol: Document 08/21/18 09:28 [facility] (Rec: 08/21/18 09:33 [facility] [id number]) OT- Bed Mobility Assessment Rolling Type of Rolling Roll to Right Level of Assistance Standby Assistance Bedrails Sit to Supine Sit to Supine Assist Standby Assistance 1 Person Assistance OT-Transfer Assessment Sit to and From Stand Sit to and from Stand Standby Assistance Comments Mobility Comments Pt satets has adjustable bed at home. M8 OT- IP Objective Assessments Start: 08/19/18 14:51 Freq: Status: Active Protocol: Document 08/19/18 14:46 [facility] (Rec: 08/19/18 15:05 [facility] [id number]) OT Gross Range of Motion Upper Extremity Range of Motion Assessment Within Functional Limits OT Strength Upper Extremity Strength Assessment Within Functional Limits Hand Cost Coordinator Strength Hand Dominance Right OT- Coordination Assessment Comments Coordination Comments BUE WFL OT-Muscle Tone Assessment Muscle Tone WNL Yes OT Sensation Assessment Comments Summary Comments Pt denies deficits Edema Edema Absent M9 OT- IP Assessment and Plan Start: 08/19/18 14:51 Freq: Status: Active Protocol: Document 08/21/18 09:28 [facility] (Rec: 08/21/18 09:33 [facility] [id number]) OT Summary Assessment and Plan Summary Progress Towards Goals Progressing Toward Goals Assessment Summary Pt has good family support and to be going home today with good family support. Discharge Recommendations OT Discharge Recommendations Home with Assistance Home Equipment Needs sock aid given
== END 2018-08-21 10:17 | disposition home or self-care (01) | DRG 455 ==
PROVIDERS: Admitting Provider Orthopaedic Surgery Orthopaedic Surgery of the Spine; PCP Physician Assistant Medical; Visit Provider Orthopaedic Surgery Orthopaedic Surgery of the Spine
PROC: 0SG30AJ Fusion of Lumbosacral Joint with Interbody Fusion Device, Posterior Approach, Anterior Column, Open Approach (ICD-10-PCS; principal; 2018-08-18 14:45)
DX: M43.17 Spondylolisthesis, lumbosacral region (principal); M53.3 Sacrococcygeal disorders, not elsewhere classified; M47.27 Other spondylosis with radiculopathy, lumbosacral region; I10 Essential (primary) hypertension; M10.9 Gout, unspecified; K21.9 Gastro-esophageal reflux disease without esophagitis; F17.210 Nicotine dependence, cigarettes, uncomplicated; M47.26 Other spondylosis with radiculopathy, lumbar region; M48.061 Spinal stenosis, lumbar region without neurogenic claudication; M48.07 Spinal stenosis, lumbosacral region
CPT/HCPCS: 36415; 72100; 76001; 85014; 85018; 94760; 94762; 97116; 97161; 97165; 97530; 97535; 99406; C1776; C9290; J0131; J0690; J1170; J1200; J2060; J2250; J2405; J2704; J3010; J3410

== ENCOUNTER → 2020-06-14 15:25 | Outpatient (CLI) | payer MEDICARE, OTHER, SELFPAY ==
[2018-08-18 19:45] VITALS: BMI 32.8
--- NOTE | 2020-06-14 | DI.MRI.S_ITS ---
PROCEDURE: MR LUMBAR SPINE WO CON INDICATIONS: Low back pain TECHNIQUE: Noncontrast sagittal T1 spin echo and T2 fast echo, sagittal STIR, axial T1 and T2 fast spin echo through the lumbar spine. In cases with scoliosis, additional coronal T2 fast spin echo may be performed. COMPARISON: [facility], MR, L-SPINE WITHOUT CONTRAST, 03/07/2018, 14:16. [facility], MR, L-SPINE WITHOUT CONTRAST, 09/18/2016, 15:00. [facility], CR, XR LUMBAR SPINE 2-3V, 08/18/2018, 15:45. FINDINGS: Image quality: Excellent. Alignment and Curvature: There is normal bony alignment. Bone Marrow: Marrow is of normal overall signal. No acute vertebral body compression fractures. Spinal Cord: Conus medullaris terminates at the L1 level. Visualized cord demonstrates normal signal and size. Paraspinous Soft Tissues: No paravertebral masses. T12-L1: Normal appearance. L1-L2: Normal appearance. L2-L3: At least moderate loss of disk height and disk signal can be seen. There is a chronic Schmorl's node seen at the inferior endplate of L2. There is moderate disc bulge is seen, which is eccentric to the right. Mild to moderate facet hypertrophy is seen. There is mild to moderate left-sided and moderate right-sided neural foraminal narrowing seen. Mild progression compared to 2018. L3-L4: The disc height is well-preserved. Loss of disc signal is seen at this level. Moderate disc bulge is seen, which is eccentric to the right. Mild to moderate facet hypertrophy is seen at this level. Mild to moderate bilateral neural foraminal narrowing is seen. Mild to moderate central canal narrowing is seen. These imaging findings have progressed compared to the prior study. L4-L5: The disc height is well-preserved. Loss of disc signal is seen at this level. Moderate disc bulge is seen, with a right lateral recess/right foraminal disc extrusion, with superior migration of the disk material. The disk extrusion can be seen on series 2, image 8. Moderate facet joint hypertrophy is seen. There is at least moderate right-sided and [id number] left-sided neural foraminal narrowing seen. At least moderate central canal narrowing is seen. These degenerative changes are worse than in 2018. L5-S1: Since 2018, bilateral pedicle screws, vertical fixation rods, and a disc spacer have been placed. There is associated susceptibility artifact. Moderate disc bulge is seen. There is at least moderate facet hypertrophy seen. No significant neural foraminal or central canal narrowing can be seen. This level is improved compared to the preoperative 2018 MRI. IMPRESSION: Postoperative change at L5-S1, with improvement compared to 2018. Worsening of degenerative changes at L2-3, L3-4, and L4-5 compared 12/2017. At the L4-5 level, there is a right lateral recess disc extrusion seen. Dictated by: Lasha Hernandez M.D. on 06/14/2020 at 16:46 Approved by: Lasha Hernandez M.D. on 06/14/2020 at 16:51
== END ==
PROVIDERS: PCP Internal Medicine; Referring Provider Physical Medicine & Rehabilitation Pain Medicine; Visit Provider Physical Medicine & Rehabilitation Pain Medicine
DX: M47.816 Spondylosis without myelopathy or radiculopathy, lumbar region (principal); M47.817 Spondylosis without myelopathy or radiculopathy, lumbosacral region; M51.26 Other intervertebral disc displacement, lumbar region; M51.27 Other intervertebral disc displacement, lumbosacral region; Z98.1 Arthrodesis status
CPT/HCPCS: 72148

== ENCOUNTER → 2021-01-11 16:09 | Outpatient (CLI) | payer MEDICARE, OTHER, SELFPAY ==
[2018-08-18 19:45] VITALS: BMI 32.8
--- NOTE | 2021-01-11 16:12 | DI.MG.S_ITS ---
BILATERAL DIGITAL SCREENING MAMMOGRAM 3D/2D WITH CAD: 01/11/2021 CLINICAL: Routine screening. Comparison is made to exams dated: 12/15/2019 mammogram, 03/25/2017 mammogram, and 02/08/2016 mammogram - outside location. The tissue of both breasts is heterogeneously dense. This may lower the sensitivity of mammography. Current study was also evaluated with a Computer Aided Detection (CAD) system. No significant masses, calcifications, or other findings are seen in either breast. There has been no significant interval change. IMPRESSION: NEGATIVE There is no mammographic evidence of malignancy. A 1 year screening mammogram is recommended. This exam was interpreted at Station ID: [id number]. NOTE: For mammograms, a report in lay terms will be sent to the patient. Approximately 15% of breast malignancies will not be visualized mammographically. In the management of a palpable breast mass, a negative mammogram must not discourage biopsy of a clinically suspicious lesion. Electronically Signed By: Mylene kemp/evan:01/11/2021 17:00:46 letter sent: Normal Exam ACR BI-RADS Category 1: Negative [id number]
== END ==
PROVIDERS: PCP Internal Medicine; Referring Provider Internal Medicine; Visit Provider Internal Medicine
DX: Z12.31 Encounter for screening mammogram for malignant neoplasm of breast (principal)
CPT/HCPCS: 77063; 77067

== ENCOUNTER → 2021-09-12 11:30 | Outpatient (CLI) | payer MEDICARE, OTHER, SELFPAY ==
[2018-08-18 19:45] VITALS: BMI 32.8
[2021-09-12 12:50] LABS: Add Manual Diff / Slide Review NO; Basophils Absolute Auto 100 /uL (0-100); Basophils Percent Auto 1.3 % (0-2); Eosinophils Absolute Auto 200 /uL (0-450); Eosinophils Percent Auto 2.3 % (2-4); Hematocrit 38.5 % (36-46); Hemoglobin 12.7 g/dL (12.0-16.0); Lymphocytes Absolute Auto 2100 /uL (1100-4500); Lymphocytes Percent Auto 28.9 % (25-40); Mean Corpuscular HGB Conc 33.1 % (30-36); Mean Corpuscular Hemoglobin 29.4 PG (26-34); Mean Corpuscular Volume 88.8 fL (80-100); Monocytes Absolute Auto 400 /uL (0-900); Monocytes Percent Auto 6.2 % (3-14); Neutrophils Absolute Auto 4500 /uL (1500-7000); Neutrophils Percent Auto 61.3 % (50-75); Platelet Count 486 X10^3/uL (150-400); Red Blood Cell Count 4.33 X10^6/uL (4.0-5.2); Red Cell Distribution Width 14.3 % (11.6-14.8); White Blood Cell Count 7.3 X10^3/uL (4.5-11.0)
[2021-09-12 13:11] LABS: Hemoglobin A1C% w Est Avg Glu 6.6 % (4.0-6.0)
[2021-09-12 13:13] LABS: BUN Creatinine Ratio 18.3 (6-22); Blood Urea Nitrogen 20 mg/dL (7-17); Calcium 9.9 mg/dL (8.4-10.2); Carbon Dioxide 20 mmol/L (22-32); Chloride 107 mmol/L (98-107); Estimated Glomerular Filt Rate 49.2 mL/min (>60); Glucose 117 mg/dL (80-110); HEMOLYSIS < 15 (0-50); Potassium 4.7 mmol/L (3.4-5.1); Sodium 139 mmol/L (137-145)
== END ==
PROVIDERS: PCP Internal Medicine; Referring Provider Orthopaedic Surgery Orthopaedic Surgery of the Spine; Visit Provider Orthopaedic Surgery Orthopaedic Surgery of the Spine
DX: Z01.818 Encounter for other preprocedural examination (principal); R73.9 Hyperglycemia, unspecified; Z01.812 Encounter for preprocedural laboratory examination
CPT/HCPCS: 36415; 80048; 83036; 85025; 93005

== ENCOUNTER → 2021-09-25 13:44 | Outpatient (CLI) | payer MEDICARE, OTHER, SELFPAY ==
[2018-08-18 19:45] VITALS: BMI 32.8
[2021-09-25 16:47] LABS: COVID19 -Nasal RAPID Negative (Negative)
== END ==
PROVIDERS: PCP Internal Medicine; Referring Provider Physician Assistant; Visit Provider Physician Assistant
DX: Z01.812 Encounter for preprocedural laboratory examination (principal); Z20.822 Contact with and (suspected) exposure to COVID-19
CPT/HCPCS: 87635; C9803

== ENCOUNTER → 2021-10-06 11:28 | Outpatient (CLI) | payer MEDICARE, OTHER, SELFPAY ==
[2018-08-18 19:45] VITALS: BMI 32.8
[2021-10-06 14:37] LABS: COVID19 -Nasal RAPID Negative (Negative)
== END ==
PROVIDERS: PCP Internal Medicine; Visit Provider Physician Assistant
DX: Z20.822 Contact with and (suspected) exposure to COVID-19 (principal)
CPT/HCPCS: 87635; C9803

== ENCOUNTER → 2021-10-09 13:56 | Outpatient (CLI) | payer MEDICARE, OTHER, SELFPAY ==
[2018-08-18 19:45] VITALS: BMI 32.8
--- NOTE | 2021-10-10 18:40 | DI.NM.S_ITS ---
DATE OF SERVICE: PROCEDURE: Pharmacological perfusion study. DATE OF STUDY: October 09, 2021. INDICATIONS: Preop evaluation with underlying diabetes mellitus, hypertension, hyperlipidemia, and abnormal EKG. RADIOPHARMACEUTICAL: 26.3 millicurie technetium-99m Myoview IV was injected at stress and 26.2 millicurie technetium-99m Myoview IV was injected at rest. CARDIAC STRESS: The patient underwent IV Lexiscan perfusion study under the supervision of an attending staff using standard intravenous Lexiscan as per protocol. The patient remained hemodynamically stable. No anginal symptoms. Baseline EKG showed sinus rhythm with QS complexes in V1 to V2. During stress, no convincing new ischemic changes or significant arrhythmias seen. RAW DATA: There was breast shadow seen. GATED STUDY: Resting LV ejection fraction 85 percent and stress LV ejection fraction 86 percent. Resting end-diastolic volume 71 mL. TID ratio 1.0, which is within normal limits. Lung/heart ratio 0.40, which is within normal limits. MYOCARDIAL PERFUSION SCAN: Stress supine, resting supine and stress prone images were compared to each other. There was normal myocardial perfusion. CONCLUSION: 1. Normal myocardial perfusion. 2. Stress left ventricular ejection fraction 86 percent. 3. No convincing ischemic changes or significant arrhythmias seen. Overall low-risk myocardial perfusion study. Shannon Mendoza - RAFIQ/isaias/amy doc#: [id number]/job#: [id number] dd: 10/10/2021 17:17:00 dt: 10/10/2021 18:25:00 DICTATING /COPIES TO: Leanne Yee MD COPIES MNE: LENNY;
== END ==
PROVIDERS: PCP Internal Medicine; Referring Provider Internal Medicine Cardiovascular Disease; Visit Provider Internal Medicine Cardiovascular Disease
DX: R94.31 Abnormal electrocardiogram [ECG] [EKG] (principal); E11.9 Type 2 diabetes mellitus without complications; I10 Essential (primary) hypertension; Z01.810 Encounter for preprocedural cardiovascular examination; E78.5 Hyperlipidemia, unspecified; F17.200 Nicotine dependence, unspecified, uncomplicated
CPT/HCPCS: 78452; 93017; A9502; J2785

== ENCOUNTER → 2021-10-30 09:22 | Outpatient (CLI) | payer MEDICARE, OTHER, SELFPAY ==
[2021-10-26 14:23] VITALS: BMI 32.8
[2021-10-30 12:51] LABS: COVID19 -Nasal RAPID Negative (Negative)
== END ==
PROVIDERS: PCP Internal Medicine; Visit Provider Nurse Practitioner Family
DX: Z20.822 Contact with and (suspected) exposure to COVID-19 (principal)
CPT/HCPCS: 87635; C9803

== ENCOUNTER 2021-11-01 11:33 | Inpatient (IN) | payer MEDICARE, OTHER, SELFPAY ==
[2021-10-26 14:23] VITALS: BMI 32.8
[2021-10-31 07:50] VITALS: BMI 33.7
[2021-11-01] VITALS (16 sets, daily range): BP systolic 97–136; BP diastolic 47–72; PULSE 81–102; RESP 12–18; TEMP 36–37; O2SAT 86–100; BMI 33.7
--- NOTE | 2021-11-01 | DI.RAD.S_ITS ---
PROCEDURE: XR LUMBAR SPINE 2-3V INDICATIONS: TLIF TECHNIQUE: AP and lateral intraoperative fluoroscopic views obtained. COMPARISON: [facility], , XR LUMBAR SPINE 2-3V, 08/18/2018, 15:45. FINDINGS: Bones: Fluoroscopic images demonstrate interval discectomy and pedicular screw and azalia fixation of L4-5 in addition to previously fixated L5-S1 level. IMPRESSION: Intraoperative fluoroscopic views as above. Dictated by: Chapito Amaro M.D. on 11/02/2021 at 9:10 Approved by: Chapito Amaro M.D. on 11/02/2021 at 9:11
--- NOTE | 2021-11-01 12:27 | SUR.PREOP ---
patient states low back pain as well as extreme right hip pain. sciatic pain right side. radiates down both legs occasionally. right foot residual numbness under toe pads from past surgery.
[2021-11-01] MEDS: LACTATED RINGERS 1,000 ML 42 ML IV ×2 (12:36→15:19)
--- NOTE | 2021-11-01 13:40 | PM.PREOP ---
Pre-operative Note COVID-19 COVID-19 status: Negative Result date/Date tested (Pos, Neg/Pending): 10/30/21 Interval Note History & Physical reviewed/Exam performed by Physician: Yes Changes to H&P: No
[2021-11-01] MEDS: CEFAZOLIN 2 GM/20 ML SYRINGE IV ×2 (14:40→22:43)
[2021-11-01] MEDS: BUPIVACAINE 0.25% (PF) 30 ML, EPINEPHrine 0.3 MG INJ (14:48)
[2021-11-01] MEDS: BUPIVACAINE LIPOSOME 266 MG/20 ML VIAL INJ (14:49)
--- NOTE | 2021-11-01 17:27 | P.OP_ITS ---
Operative Date/Time/Diagnoses Date of procedure: 11/01/21 Time of procedure: 13:30 Pre-op diagnosis: 1. L4-5 spinal stenosis 2. Hx of L5-S1 TLIF with spinal stenosis 3. Lumbar spondylosis with radiculopathy Post-op diagnosis: same Procedure & Clinicians Procedure: 1. L4-5, L5-S1 posterolateral and posterior interbody fusion 2. L4-5, L5-S1 posterior interbody cage placement 3. L5-S1 posterior non-segmental instrumentation removal 4. L4-5 revision laminectomy with exploration of fusion 5. L4-5, L5-S1 posterior segmental instrumentation with pedicle screw placement 6. L4-5 posterolatearl fusion 7. [place] of bone marrow from iliac crest through a separate incision 8. Utilization of microsurgical technique and operating microscope Same procedure as scheduled: Yes Indications: Patient has been having chronic back pain and worsening lumbar radiculopathy. Patient had previous fusion surgery 3 years ago with improved pain and function normal ability for the last 2 and half years. Patient has been having worsening pain in her right lower extremity and back for the last 6 months. Patient failed multiple conservative management with worsening pain weakness and numbness in her lower extremity. Patient has been having difficulty performing activity of daily living. After discussing risks benefits of treatment options, patient elected proceed with surgery. Surgeon: Mendoza Wilkins Associate Professor Of Psychology: Aguilar Hoffman Click Yes if Unassisted: No Anesthesia Type: General Operative Notes Closure Type: primary Specimen(s): none sent Prosthetic devices, grafts, tissues, transplants, or devices: Globus revolve screws, Rise cage Applied: catheter Estimated Blood Loss (mL): 100 Blood products transfused: none Procedure in detail: Patient was seen in the preoperative area. Risks and benefits of the surgery was discussed with the patient. Informed consent was obtained from the patient and placed in the chart. Surgical site was marked. Patient was taken to the operative room. General anesthesia was administered. Prophylactic antibiotic was given to the patient less than 30 min before the incision was made. Patient was placed into a prone position on the Ricky table. Patient's back was then prepped and draped in the sterile fashion. Time-out was performed at this time. Using patient's previous scar incision was made over the L4-5 L5-S1 interval on the right side. Fascia was incised in line with skin incision. Patient's previously placed hardware over the L5-S1 level was identified by dissecting down to the level the hardware using a Bovie and a Roberts. The locking caps which was removed using globus screwdriver. The locking azalia was then removed from the tulips of the pedicle screws using a Kenrick. The pedicle screws were then removed using the screwdriver. The screws were found to have good purchase. The Globus and MARS retractors was then placed into the wound and docked onto the L4 lamina using C-arm guidance. Using microsurgical technique and operating microscope a laminectomy facetectomy was performed by removing the L4 lamina and the L4-5 facet. The disc space at L4-5 level was identified next. And a total diskectomy was performed at L4-5 level. The endplates were decorticated using a rasp and shaver. The total diskectomy and decortication was performed at L4-5 level in order to to accomplish a L4-5 fusion. The local bone from the laminectomy and facetectomy was saved for local bone grafting. After the total diskectomy and decortication was completed, Trifecta bone graft material was combined with local bone that was harvested earlier. At this time, a separate skin is incision was made over the iliac crest. A Jamshidi needle was inserted into the iliac crest through a separate skin incision. 5 cc of bone marrow aspiration was obtained through the separate skin incision using a Jamshidi needle from the iliac crest. The bone marrow aspiration was combined with local bone and the Trifecta bone grafting material. The bone grafting material was placed into the L4-5 interbody space along with a expandable cage. The cage was expanded to its maximum height using the torque limiting screwdriver. At this time a mirror image incision was made on the left side. The fascia was incised in line with the skin incision. Patient's previously placed hardware on the left side was then removed in the same fashion as it was on the right side. The hardware was also found to have good purchase. The fusion mass on the and left side was exposed by performing a left-sided hemilaminectomy at L5-S1 level. The hemilaminectomy was performed using the Kerrison rongeur to undercut the lamina at L5-S1 as well removing additional epidural scar tissue for purpose of decompressing the epidural space. The fusion mass was explored and was found have visible motion indicating pseudoarthrosis. Globus MARS retractor was inserted and docked onto the L4-5 L5-S1 posterolateral gutter. Using the power drill, posterior-lateral decortication was performed at L4-5 L5-S1 level until bleeding cortical bone was identified. The remaining bone grafting material was placed into the L4-5 L5-S1 posterior lateral gutter he order to accomplish posterolateral fusion at the L4-5 L5-S1 level. Using the double C-arm technique, pedicle screws were placed into the L4-L5 and S1 pedicles bilaterally. This was done by placing the Jamshidi needle into the pedicles, then placing the guidewires over the Jamshidi needle, and finally placing the cannulated screws over the guidewires bilaterally. After the pedicle screws were placed, 2 titanium rods was locked into the heads of the pedicle screws using locking caps and torque limiting screwdriver. After all the hardware was placed, and confirmed with AP and lateral C-arm imaging, the wound was then irrigated with sterile normal saline and packed with Ray-Marissa gauze for 3 min to accomplish hemostasis. After the gauze was removed the deep fascia was closed with #1 Vicryl suture. The subcutaneous layer was closed with 2-0 Vicryl. The skin was closed with skin javi. Patient tolerated the procedure well. There were no complications. Complications: none Post-operative Condition: stable Disposition: PACU Plan for aftercare: Admit to inpatient hospital
--- NOTE | 2021-11-01 17:48 | SUR.PHASEI ---
1725 Received from OR post spine surgery. When looking at back area where dressing is, theres slight redness around wound area where surgical drape/tape was pulled. Doesn't appear to be raw.
[2021-11-01] MEDS: hydrOXYzine 50 MG/ML INJ IM (18:12)
--- NOTE | 2021-11-01 18:56 | SUR.PHASEI ---
1830 Finally waking up from procedure without being delerious. VSS Report given to acute care RN. Transferred
[2021-11-01] MEDS: SODIUM CHLORIDE 0.9% 1,000 ML 100 ML IV (19:17)
[2021-11-01] MEDS: OXYCODONE IR 5 MG TABLET 10 MG PO ×2 (20:18→23:01)
--- NOTE | 2021-11-01 22:18 | PC.NURSE ---
Addendum entered by Valeria Shafer R.N. 11/02/21 02:45: sanguinous drainage leaking through dressing; reinforced. Medicated with oxycodone for 7/10 pain. Addendum entered by Valeria Shafer R.N. 11/01/21 23:05: Dangled at edge of bed and then stood with walker and 1 assist and side stepped to top of bed before lying back down. Doing well with log rolling and knows not to twist or bend. Given/instructed in use of I.S. Medicated with oxycodone for 7/10 pain but declined ice pack. Addendum entered by Valeria Shafer R.N. 11/01/21 23:05: Dangled at edge of bed and then stood with walker and 1 ass Original Note: Patient admitted from PACU and accepted by ZORAN Noguera. Is drowsy but arouses readily and is oriented. Breath sounds diminished but CTA. On oxygen at 5L/min at shift change with sat of 93% and currently is 97% so oxygen decreased to 4L/min and will continue to titrate as able during the night. HRR but BP low at 97/49 at 2102 so Amlodipine held at hs. Denied nausea. BT absent at time of assessment. Indwelling catheter is patent. Dressing to back is intact with shadow drainage noted on right side of dressing and some sanguinous drainage over steristrip site on left side of dressing. Complained of 8/10 pain so medicated with oxycodone and ice applied and is currently asleep. Has been repositioning herself; reminded to log roll. Not out of bed so gait has not been assessed. Is wearing bilateral foot SCD's. Fall risk score is moderate and bed alarm is activated. Post op teaching not done as patient is too drowsy to educate.
[2021-11-02] MEDS: OXYCODONE IR 5 MG TABLET 10 MG PO ×6 (02:27→20:25)
[2021-11-02 03:00] VITALS: BP 99/44; PULSE 91; RESP 18; TEMP 36.7; O2SAT 96
[2021-11-02 05:26] LABS: Hematocrit 32.5 % (36-46); Hemoglobin 10.9 g/dL (12.0-16.0)
[2021-11-02] MEDS: SODIUM CHLORIDE 0.9% 1,000 ML 100 ML IV (05:36)
[2021-11-02] MEDS: PANTOPRAZOLE DR 20 MG TABLET PO (05:38)
[2021-11-02] MEDS: CEFAZOLIN 2 GM/20 ML SYRINGE IV (06:48)
--- NOTE | 2021-11-02 07:32 | PM.PNPO.1 ---
Subjective Subjective Date Patient Seen: 11/02/21 Time Patient Seen: 07:33 Interval history: Patient is complaining of [id number] low back pain. She denies any new numbness or tingling, she does have baseline numbness in the right ball of her foot, unchanged from surgery No fevers, chills, night sweats. Exam Vital Signs (past 8 hours): - 11/02/21 03:00 Temperature 98.0 F Pulse Rate 91 H Respiratory Rate 18 Blood Pressure 99/44 L Pulse Oximetry 96 Oxygen Delivery Method Nasal Cannula Oxygen Flow Rate 1 Narrative Exam Narrative: Pleasant 71-year-old female, resting comfortably in bed, no acute distress. Dressing was saturated with blood and therefore changed. There is no active bleeding, no surrounding erythema or signs of a hematoma. Bilateral lower extremities: Motor function is grossly intact, sensation is grossly intact to light touch, calves are soft and nontender to palpation. Objective Labs Result Diagrams: 11/02/21 04:40 Labs: Laboratory Results - last 24 hr 11/02/21 04:40 Hgb 10.9 L Hct 32.5 L PFSH Medical History Ankle fracture, left Burn Diabetes Difficult intravenous access Esophagitis GERD (gastroesophageal reflux disease) Gout HTN (hypertension) Hyperlipidemia Low back pain Migraines Numbness Osteoarthritis Plantar fasciitis of left foot Sciatica Skin cancer Skin cancer (melanoma) Surgical History H/O: hysterectomy History of lumbar spinal fusion (08/18/18) Hx of appendectomy Hx of cholecystectomy Hx of left breast biopsy [place] teeth removed Social History household members: none Smoking Status: Current every day smoker alcohol intake: current Assessment & Plan Post-op Postoperative Procedures: Procedures Operation Date: 11/01/21 13:15 Actual Procedure Side Surgeon p L4-5 TLIF, L5-S1 lumbar HWR, exploration of fusion, repeat laminectomy, reinsertion of hardware Mendoza Wilkins MD Postoperative day: 1 Postoperative status narrative: Stable status post TLIF Postoperative plan narrative: -mobilize with PT. Limit bending, lifting, twisting. Weightbearing as tolerated with front wheel walker -monitor for orthostatic hypotension -continue with current pain regimen -disposition in 1-2 days, to home. Patient lives alone and will need to be cleared by Physical therapy.
[2021-11-02 07:42] VITALS: BP 105/43; PULSE 74; RESP 16; TEMP 36.3; O2SAT 93
[2021-11-02 08:41] VITALS: BP 105/43
[2021-11-02] MEDS: DOCUSATE 100 MG CAPSULE PO ×2 (08:45→20:27)
[2021-11-02] MEDS: FENOFIBRATE, MICRONIZED 67 MG CAPSULE PO (08:45)
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
[2021-11-02] MEDS: hydrOXYzine pamoate 25 MG CAPSULE PO ×3 (09:45→23:35)
[2021-11-02] MEDS: ACETAMINOPHEN 325 MG TABLET 650 MG PO ×3 (09:45→22:03)
--- NOTE | 2021-11-02 10:59 | CM.DANOTE ---
Discharge Assessment Note: Patient is 71yo Female admitted post TLIF performed by Dr. Wilkins. Patient resides at home alone with friends across the street and multiple family members within minutes of her home. Patient reported being fully independent at baseline (with extreme pain the past 8 months). Patient has adaptive devices at home to assist with ambulation to include FWW and cane. Patient has 5 steps to access her 1 story home. Patient has grab bars in shower and reported shower chair was not helpful after similar surgery completed historically. PT & OT have worked with patient this AM; awaiting notes to evaluate anticipated dc needs. Patient prefers home with outpatient PT; [employer] shared HH and rehab options if they were necessary. Patient stated understanding of post dc treatment options. Patient had outpatient PT after her past surgery. Patient provided copies of Living Will and DPOA to [employer] which will be scanned into record. Patient reported she prefers her brother to be decision maker for her care needs if she is unable to do so. Plan: patient is anticipated to discharge with PT needs. Care Management team will continue to monitor to determine if these will be outpatient or other as PT/OT/RT evals are completed. Patient reported she has family or friends that will be able to transport her home at time of discharge; who depends on day/time of dc. Ins: Medicare w [employer] as secondary Javier MURO Discharge Planning/Care Management CM Discharge Assessment Start: 11/02/21 10:55 Freq: Status: Active Protocol: Document 11/02/21 10:55 JERROD (Rec: 11/02/21 10:59 [facility] [id number]) Discharge Planning Assessment Assigned Wet Process Head Miller Javier [id number] DPOA/Assigned Designee Name SonTorsten Contact Information [phone] Advance Directives? Yes Advance Directives on File Yes History Provided By Patient,Medical Record Has Patient been admitted in last 30 No days? Prior Living Arrangements Mobile home Comment 5 steps to access, 1 story Household Members none Comment patient reported friends across street and multiple family members within minutes of her home Type of transporation used prior to Drives own vehicle admit Independent with ADL's Yes Is patient alert and oriented? Yes Caregiver for Another No DME Already Rented / Owned FWW / Walker,Cane Comment FWW, grab bars in shower, cane available at home. Patient stated shower chair didn't work for her when prior same surgery completed Patient/Family Preference OP PT Therapy,OP OT Therapy Barriers to Discharge No Comment Pending therapy evaluation. Discharge Plan Home Community Services Physical Therapy,Occupational Therapy Transportation Arrangement Patient has family/support that can provide transport. Additional Comment Patient prefers home. Therapy evaluations currently pending. Whiteboard Updated in Patient Room with Yes name and ext. # of Wet Process Head Miller Review Status In Process Next Review Type Continued Stay Review
[2021-11-02 12:30] VITALS: BP 104/59; PULSE 80; RESP 16; TEMP 37.1; O2SAT 92
--- NOTE | 2021-11-02 12:59 | PT.IPTN ---
Current Diagnoses Intervertebral disc disorders with radiculopathy, lumbar region (11/01/21) Arthrodesis status (11/01/21) Surgery Performed Operation Date: 11/01/21 13:15 Actual Procedures p L4-5 TLIF, L5-S1 lumbar HWR, exploration of fusion, repeat laminectomy, reinsertion of hardware - Mendoza Wilkins MD Physical Therapy Treatment Note M2 PT-IP Current Condition Start: 11/02/21 11:47 Freq: NEEDED Status: Active Protocol: Document 11/02/21 09:25 AB (Rec: 11/02/21 12:02 AB [id number]) Physical Therapy Current Condition Current Condition Evaluation Date 11/02/21 Treatment Diagnosis s/p L4-5, L5S1 TLIF; difficulty in walking Onset Date 11/01/21 M3 PT-IP Subjective Start: 11/02/21 11:47 Freq: NEEDED Status: Active Protocol: Document 11/02/21 12:59 AB (Rec: 11/02/21 14:34 AB [email or web address]) Subjective Physical Therapy Visit Type Type Treatment Note Visit Start Time 12:59 Visit Stop Time 13:10 Total Visit Minutes 11 Number of COMPUTER TRAINER Visits 0 Physical Therapy Visit Comments Patient Comments pt requesting to use the toilet Therapy Pain Assessment Pain When Pain Assessed At Rest Pain Present Pain Present Pain Reported Location Back Intensity 6 Scale Used Numeric (0 - 10) Pain Management Techniques Distraction,Modification of Treatment,Re-positioning, Timing of Activity with Medications M4 PT-IP Mobility and Gait Start: 11/02/21 11:47 Freq: NEEDED Status: Active Protocol: Document 11/02/21 12:59 AB (Rec: 11/02/21 14:34 AB [email or web address]) PT-Transfer Assessment Sit to and From Stand Sit to and from Stand Standby Assistance Equipment Transfer Assistive Device Gait Belt,Front Wheeled Walker Orthotic/Prosthetic Devices or Brace: No Transfers Transfer Destination Toilet Transfer Technique ambulated using FWW Transfer Ability Level of Assist Standby Assistance,1 Person Assistance,Use of Upper Extremities Comments Mobility Comments pt sitting on EOB and requested to use the toilet. completed sit to stand sBA and ambulated to the toilet using FWW SBA. completed toileting SBA. ambulated out of the toilet using FWW towards the sink and able to maintain standing balance leaning against the sink SBA while completing handwashing. pt refused further ambulation. ambulated back to EOB using FWW SBA. pt agreed to ambulate with nurse later on today. informed NAC. Left pt with table and call light within reach. Gait Assessment Gait Gait Assistance Required: Standby Assistance Distance (Feet) 20 Able to Maintain Weight Bearing Status Yes During Gait Assistive Devices Assistive Device Gait Belt,Front Wheeled Walker Gait Deviations General Gait Pattern Decreased Stride Length, Decreased Feet Clearance Factors Limiting Gait Function Factors Limiting Gait Function Decreased Activity Tolerance, Decreased Strength,Limited Range of Motion,Pain,Poor Balance,Poor Safety Awareness M5 PT-IP Objective Assessments Start: 11/02/21 11:47 Freq: NEEDED Status: Active Protocol: Document 11/02/21 09:25 AB (Rec: 11/02/21 12:02 AB [id number]) Orientation Orientation/Cognition Level of Alertness Alert Orientation Name,Age,Birthday,Month,Date, Year,Day of Week,Place, Situation Language Function Ability No Deficits Noted Safety Awareness Decreased Safety Awareness Memory Description No Deficits Noted Gross Range of Motion Lower Extremity ROM Assessment Within Functional Limits Strength Lower Extremity Strength Hip 3+/5 Knee 4-/5 Coordination Assessment Gross Coordination Gross Coordination WNL Sensation Assessment Sensation Gross Sensation Right LE Impaired Sensation Description Numbness Comments Sensation Comments R big toe numbness per pt Muscle Tone Muscle Tone WNL Yes M6 PT-IP Treatment Start: 11/02/21 11:47 Freq: NEEDED Status: Active Protocol: Document 11/02/21 12:59 AB (Rec: 11/02/21 14:34 AB [email or web address]) Physical Therapy Treatment Education Education Provided Precautions,Safety M7 PT-IP Assessment and Plan Start: 11/02/21 11:47 Freq: NEEDED Status: Active Protocol: Document 11/02/21 12:59 AB (Rec: 11/02/21 14:34 AB [email or web address]) PT Summary Assessment and Plan Potential Rehabilitation Potential Good Summary Impairments Pain,ROM,Strength,Balance, Coordination,Sensation,Tone, Cognition,Bed Mobility, Transfers,Gait,Activity Tolerance Progress Towards Goals Progressing Toward Goals Assessment Summary pt requiring SBA with mobility and may go home when medically stable. pt lives alone but will have family to assist her when needed. Goals Bed Mobility Goal Independent Transfer Goal Independent,Front Wheeled Walker Gait Goal Independent,Front Wheel Walker Gait Distance 200 Other Goals improve ambulation without AD SBA 250 ft up/down 5 steps L rail mod I Days to Meet Goals 5 Frequency of Treatment Frequency Of Treatment Twice a Day Treatment Plan Physical Therapy Treatment Plan Bed Mobility Training,Transfer Training,Gait Training, Therapeutic Exercise,Balance Retraining,Post Op Education, Discharge Planning,Hot or Cold Pack,Neuromuscular Re-ed, Coordination Retraining,Manual Therapy Precautions Lumbar Precautions Log Roll,No Twisting,Limit Bending,Lifting Restriction of 10 lbs,Gait Belt above Incisional Area Recommendations To Nursing Amount of Assist Needed Standby Assistance Discharge Recommendations PT Discharge Recommendations Home Transportation Needs at Discharge Private Vehicle
[2021-11-02 19:00] VITALS: BP 135/46; PULSE 67; RESP 16; TEMP 37.4; O2SAT 93
[2021-11-02] MEDS: ATORVASTATIN 20 MG TABLET 80 MG PO (20:26)
[2021-11-02] MEDS: SENNOSIDES 8.6 MG TABLET 17.2 MG PO (20:27)
[2021-11-02] MEDS: SODIUM CHLORIDE 0.9% FLUSH 10 ML IV (22:04)
[2021-11-03] VITALS (11 sets, daily range): BP systolic 97–137; BP diastolic 33–58; PULSE 78–89; RESP 16–20; TEMP 36.8–38.6; O2SAT 92–94
[2021-11-03] MEDS: OXYCODONE IR 5 MG TABLET 10 MG PO ×5 (00:55→19:50)
[2021-11-03] MEDS: ACETAMINOPHEN 325 MG TABLET 650 MG PO ×3 (04:47→21:03)
[2021-11-03] MEDS: PANTOPRAZOLE DR 20 MG TABLET PO (05:31)
[2021-11-03] MEDS: DOCUSATE 100 MG CAPSULE PO ×2 (09:19→21:04)
[2021-11-03] MEDS: FENOFIBRATE, MICRONIZED 67 MG CAPSULE PO (09:19)
[2021-11-03] MEDS: SODIUM CHLORIDE 0.9% FLUSH 10 ML IV ×2 (09:20→21:07)
[2021-11-03] MEDS: hydrOXYzine pamoate 25 MG CAPSULE PO ×2 (09:23→15:01)
--- NOTE | 2021-11-03 09:55 | P.PN_ITS ---
Subjective Subjective Date Patient Seen: 11/03/21 Time Patient Seen: 09:55 Interval history: Patient is complaining of moderate low back pain this morning. She is also dizzy with sitting to standing and any activities. Her blood pressures have been relatively low, 97/36. Denies any new numbness or tingling, she has her baseline numbness. She lives alone. Exam Vital Signs (past 8 hours): - 11/03/21 04:53 11/03/21 09:38 11/03/21 09:43 Temperature 98.3 F 98.9 F Pulse Rate 85 84 84 Respiratory Rate 17 16 Blood Pressure 126/44 L 97/36 L 97/36 L Pulse Oximetry 93 94 11/03/21 09:48 Temperature Pulse Rate Respiratory Rate Blood Pressure 125/58 L Pulse Oximetry Oxygen Delivery Method Nasal Cannula Oxygen Flow Rate 0 Narrative Exam Narrative: Pleasant 71-year-old female, standing with her therapist, no acute distress. Dressing demonstrates some bloody discharge bilaterally left worse than right. Bilateral lower extremity: Motor function is grossly intact, sensation is grossly intact to light touch, calves are soft and nontender palpation. Objective Labs Result Diagrams: 11/02/21 04:40 [facility] Medical History Ankle fracture, left Burn Diabetes Difficult intravenous access Esophagitis GERD (gastroesophageal reflux disease) Gout HTN (hypertension) Hyperlipidemia Low back pain Migraines Numbness Osteoarthritis Plantar fasciitis of left foot Sciatica Skin cancer Skin cancer (melanoma) Surgical History H/O: hysterectomy History of lumbar spinal fusion (08/18/18) Hx of appendectomy Hx of cholecystectomy Hx of left breast biopsy [place] teeth removed Social History household members: none Smoking Status: Current every day smoker alcohol intake: current Assessment & Plan Post-op Postoperative Procedures: Procedures Operation Date: 11/01/21 13:15 Actual Procedure Side Surgeon p L4-5 TLIF, L5-S1 lumbar HWR, exploration of fusion, repeat laminectomy, reinsertion of hardware Mendoza Wilkins MD Postoperative day: 2 Postoperative status narrative: Stable status post hardware removal and TLIF Postoperative plan narrative: -mobilize with PT. Been limit bending, lifting, twisting. Weightbearing as tolerated front wheel walker -continue current pain regimen -patient is hypertensive and symptomatic with standing activities -disposition likely home tomorrow, unless cleared by PT and her hypotension has resolved. I will check on her this afternoon.
--- NOTE | 2021-11-03 10:05 | OT.IP.TRT ---
Current Diagnoses Intervertebral disc disorders with radiculopathy, lumbar region (11/01/21) Arthrodesis status (11/01/21) Surgery Performed Operation Date: 11/01/21 13:15 Actual Procedures p L4-5 TLIF, L5-S1 lumbar HWR, exploration of fusion, repeat laminectomy, reinsertion of hardware - Mendoza Wilkins MD Occupational Therapy Treatment Note M2 OT-IP Current Condition Start: 11/02/21 12:31 Freq: Status: Active Protocol: Document 11/02/21 12:31 [facility] (Rec: 11/02/21 12:48 [facility] [id number]) Occupational Therapy Current Condition Current Condition Evaluation Date 11/02/21 Treatment Diagnosis S/P L4-5 TLIF, L5-S1 lumbar HWR Diagnosis Onset Date 11/01/21 Post Operative Precautions Lumbar Precautions Log Roll,No Twisting,Limit Bending,Lifting Restriction of 10 lbs,Gait Belt above Incisional Area M3 OT- IP Subjective and Pain Start: 11/02/21 12:31 Freq: Status: Active Protocol: Document 11/03/21 09:34 [facility] (Rec: 11/03/21 12:25 [facility] [id number]) OT- Subjective Occupational Therapy Visit Type Type Treatment Note Visit Start Time 09:34 Visit Stop Time 10:05 Total Visit Minutes 31 Occupational Therapy Visit Comments Patient Comments Pt already in the bathroom when OT came to see the pt. Patient/Caregiver Goals TO go home. OT Pain Assessment Pain When Pain Assessed During Mobility Pain Present Pain Present Pain Reported Location Back Intensity 7 Scale Used Numeric (0 - 10) M4 OT- IP ADL's Start: 11/02/21 12:31 Freq: Status: Active Protocol: Document 11/03/21 09:34 [facility] (Rec: 11/03/21 12:25 [facility] [id number]) OT HLG-Bowr-Icoxkiv Comments OT Self-Feeding Comments Not at meal time. OT ADL-Grooming General Evaluation Grooming Ability Standby Assistance Areas Needing Assistance Retrieving/Set-up of Grooming Items OT ADL-Dressing General Eval Lower Body Dressing Ability Standby Assistance Comments OT Dressing Comments Able to use the jewelry jobber to assist for brief management needs. Also able to issue pt socks aid and long handled sponge for pt to use at home. OT ADL-Toileting Comments OT Toileting Comments Pt not able to appropriately wipe at this time and continue to suggest for pt to get a toilet paper aid otherwise she will need assist. OT ADL-Bathing Comments OT Bathing Comments Pt to tired to attempt at this time. Pt will still benefit from assist for showering needs at home. M6 OT- IP Functional Cognition Start: 11/02/21 12:31 Freq: Status: Active Protocol: Document 11/03/21 09:34 [facility] (Rec: 11/03/21 12:25 [facility] [id number]) Cognitive Factors Limiting Selfcare Function Cognitive Comments Cognitive Assessment Comments Pt still a bit impulsive at times. M7 OT- IP Mobility and Balance Start: 11/02/21 12:31 Freq: Status: Active Protocol: Document 11/03/21 09:34 [facility] (Rec: 11/03/21 12:25 [facility] [id number]) OT- Bed Mobility Assessment Sit to Supine Sit to Supine Assist Contact Guard Assistance OT-Transfer Assessment Sit to and From Stand Sit to and from Stand Contact Guard Assistance Transfers Transfer Ability Standby Assistance,Contact Guard Assistance Technique Transfer Destination Bed,Toilet Transfer Technique Stand Step Pivot Devices Transfer Assistive Devices Gait Belt,Front Wheeled Walker Comments Mobility Comments Pt stil needing a little assist for her legs to get back onto bed. Pt states to sleep in her recliner for ht first few nights. Since pt will be in her recliner at night , strongly suggested for pt to have someone stay with her to assist as her bed will be available for help to stay. Originally , pt insisting that she had no place for someone to stay with her. OT- Balance Assessment Sitting Balance and Reactions Static Sitting Balance Ability Good Dynamic Sitting Balance Ability Good Standing Balance and Reactions Static Standing Balance Ability Fair M8 OT- IP Objective Assessments Start: 11/02/21 12:31 Freq: Status: Active Protocol: Document 11/02/21 12:31 [facility] (Rec: 11/02/21 12:48 [facility] [id number]) OT-Muscle Tone Assessment Muscle Tone WNL Yes M9 OT- IP Assessment and Plan Start: 11/02/21 12:31 Freq: Status: Active Protocol: Document 11/03/21 09:34 [facility] (Rec: 11/03/21 12:25 [facility] [id number]) OT Summary Assessment and Plan Potential Rehabilitation Potential Good Analytic Complexity at Evaluation Low Summary OT Impairments Pain,Functional Cognition, Functional Mobility,Grooming, Dressing,Toileting,Bathing, Toilet Transfers,Shower Transfers Progress Towards Goals Progressing Toward Goals Assessment Summary Pt in pain today and a bit nauseous however BP remained intact 125/58 and 138/58. Pt states to consider having someone stay with her initially, otherwise will have assist available when needed. Goals Grooming Goal Independent Dressing Goal Independent Toileting Goal Independent Bathing Goal Standby Assistance Toilet Transfer Goal Independent Shower Transfer Goal Standby Assistance Patient/Caregiver Education Goal Demonstrate Post-Op Precautions Days to Meet Goals 3 Frequency of Treatment Frequency Of Treatment Once a Day Treatment Plan OT Treatment Plan ADL Training,Functional Cognition Training,Functional Mobility,Patient/Family Education,Discharge Planning Other Treatment Recommendations and Next shower if still here Treatment Focus Discharge Recommendations OT Discharge Recommendations Home with Assistance,Home with 24/ Assist Available Home Equipment Needs shower chair, toilet paper aid Transportation Needs at Discharge Private Vehicle
--- NOTE | 2021-11-03 10:15 | PT.IPTN ---
Current Diagnoses Intervertebral disc disorders with radiculopathy, lumbar region (11/01/21) Arthrodesis status (11/01/21) Surgery Performed Operation Date: 11/01/21 13:15 Actual Procedures p L4-5 TLIF, L5-S1 lumbar HWR, exploration of fusion, repeat laminectomy, reinsertion of hardware - Mendoza Wilkins MD Physical Therapy Treatment Note M2 PT-IP Current Condition Start: 11/02/21 11:47 Freq: NEEDED Status: Active Protocol: Document 11/02/21 09:25 AB (Rec: 11/02/21 12:02 AB [email or web address]) Physical Therapy Current Condition Current Condition Evaluation Date 11/02/21 Treatment Diagnosis s/p L4-5, L5S1 TLIF; difficulty in walking Onset Date 11/01/21 M3 PT-IP Subjective Start: 11/02/21 11:47 Freq: NEEDED Status: Active Protocol: Document 11/03/21 10:15 AB (Rec: 11/03/21 12:35 AB [email or web address]) Subjective Physical Therapy Visit Type Type Treatment Note Visit Start Time 10:15 Visit Stop Time 10:46 Total Visit Minutes 31 Number of MONKEY KEEPER Visits 0 Physical Therapy Visit Comments Patient Comments agreeable to do PT Therapy Pain Assessment Pain When Pain Assessed At Rest Pain Present Pain Present Pain Reported Location Back Scale Used pain scale not stated M4 PT-IP Mobility and Gait Start: 11/02/21 11:47 Freq: NEEDED Status: Active Protocol: Document 11/03/21 10:15 AB (Rec: 11/03/21 12:35 AB [email or web address]) PT-Bed Mobility Assessment Rolling Level of Assist Standby Assistance Supine to Sit Supine to Sit Standby Assistance,Bedrails Sit to Supine Sit to Supine Standby Assistance,Bedrails PT-Transfer Assessment Sit to and From Stand Sit to and from Stand Standby Assistance Equipment Transfer Assistive Device Gait Belt,Front Wheeled Walker Orthotic/Prosthetic Devices or Brace: No Comments Mobility Comments BP supine: 100/40. completed log roll supine to sit SBA. BP after sitting for 2 min: 130/52. no c/o dizziness/ lightheadedness. pt ambulated in room SBA using FWW 75 ft. rested sitting on EOB. BP checked: 127/63. pt agreed to do stairs. assisted to stairs. completed up/down steps holding on to L rail with B hands SBA. repeated x 2. assisted back to her room. transferred to bed using fWW SBA. BP checked: 135/53. pt rerfused to sit on chair and stated that chair is too low and not comfortable. completed sit to supine log roll SBA. positioned pt on the bed. call light and table placed within reach. Gait Assessment Gait Gait Assistance Required: Standby Assistance Distance (Feet) 75 Able to Maintain Weight Bearing Status Yes During Gait Assistive Devices Assistive Device Gait Belt,Front Wheeled Walker Orthotic/Prosthetic Devices or Brace: No Factors Limiting Gait Function Factors Limiting Gait Function Decreased Activity Tolerance, Decreased Strength,Limited Range of Motion,Pain,Poor Balance,Poor Safety Awareness Stair Climbing Assessment Evaluation Level of Assist On Stairs Standby Assistance Devices Stair Climbing Assistive Devices Left Railing Technique/Endurance Stair Climbing Direction Ascend and Descend Stair Climbing Technique Step to Step Number of Steps Climbed 3 Stair Climbing Set # Repetitions (reps) 2 M5 PT-IP Objective Assessments Start: 11/02/21 11:47 Freq: NEEDED Status: Active Protocol: Document 11/02/21 09:25 AB (Rec: 11/02/21 12:02 AB [id number]) Orientation Orientation/Cognition Level of Alertness Alert Orientation Name,Age,Birthday,Month,Date, Year,Day of Week,Place, Situation Language Function Ability No Deficits Noted Safety Awareness Decreased Safety Awareness Memory Description No Deficits Noted Gross Range of Motion Lower Extremity ROM Assessment Within Functional Limits Strength Lower Extremity Strength Hip 3+/5 Knee 4-/5 Coordination Assessment Gross Coordination Gross Coordination WNL Sensation Assessment Sensation Gross Sensation Right LE Impaired Sensation Description Numbness Comments Sensation Comments R big toe numbness per pt Muscle Tone Muscle Tone WNL Yes M6 PT-IP Treatment Start: 11/02/21 11:47 Freq: NEEDED Status: Active Protocol: Document 11/03/21 10:15 AB (Rec: 11/03/21 12:35 AB [id number]) Physical Therapy Treatment Education Education Provided Precautions,Safety M7 PT-IP Assessment and Plan Start: 11/02/21 11:47 Freq: NEEDED Status: Active Protocol: Document 11/03/21 10:15 AB (Rec: 11/03/21 12:35 AB [id number]) PT Summary Assessment and Plan Potential Rehabilitation Potential Good Summary Impairments Pain,ROM,Strength,Balance, Coordination,Sensation,Tone, Cognition,Bed Mobility, Transfers,Gait,Activity Tolerance Progress Towards Goals Progressing Toward Goals Assessment Summary pt is progressing well with mobility and requires SBA using FWW. pt may go home when medically stable. Goals Bed Mobility Goal Independent Transfer Goal Independent,Front Wheeled Walker Gait Goal Independent,Front Wheel Walker Gait Distance 200 Other Goals improve ambulation without AD SBA 250 ft up/down 5 steps L rail mod I Days to Meet Goals 5 Frequency of Treatment Frequency Of Treatment Twice a Day Treatment Plan Physical Therapy Treatment Plan Bed Mobility Training,Transfer Training,Gait Training, Therapeutic Exercise,Balance Retraining,Post Op Education, Discharge Planning,Hot or Cold Pack,Neuromuscular Re-ed, Coordination Retraining,Manual Therapy Precautions Lumbar Precautions Log Roll,No Twisting,Limit Bending,Lifting Restriction of 10 lbs,Gait Belt above Incisional Area Recommendations To Nursing Amount of Assist Needed Standby Assistance Discharge Recommendations PT Discharge Recommendations Home Transportation Needs at Discharge Private Vehicle
--- NOTE | 2021-11-03 13:05 | PT.IPTN ---
Current Diagnoses Intervertebral disc disorders with radiculopathy, lumbar region (11/01/21) Arthrodesis status (11/01/21) Surgery Performed Operation Date: 11/01/21 13:15 Actual Procedures p L4-5 TLIF, L5-S1 lumbar HWR, exploration of fusion, repeat laminectomy, reinsertion of hardware - Mendoza Wilkins MD Physical Therapy Treatment Note M2 PT-IP Current Condition Start: 11/02/21 11:47 Freq: NEEDED Status: Active Protocol: Document 11/02/21 09:25 AB (Rec: 11/02/21 12:02 AB [email or web address]) Physical Therapy Current Condition Current Condition Evaluation Date 11/02/21 Treatment Diagnosis s/p L4-5, L5S1 TLIF; difficulty in walking Onset Date 11/01/21 M3 PT-IP Subjective Start: 11/02/21 11:47 Freq: NEEDED Status: Active Protocol: Document 11/03/21 13:05 AB (Rec: 11/03/21 13:33 AB [email or web address]) Subjective Physical Therapy Visit Type Type Treatment Note Visit Start Time 13:05 Visit Stop Time 13:25 Total Visit Minutes 20 Number of LABEL DESIGNER Visits 0 Physical Therapy Visit Comments Patient Comments wants to use the toilet Therapy Pain Assessment Pain When Pain Assessed During Mobility Location Back Scale Used pain scale not stated M4 PT-IP Mobility and Gait Start: 11/02/21 11:47 Freq: NEEDED Status: Active Protocol: Document 11/03/21 13:05 AB (Rec: 11/03/21 13:33 AB [email or web address]) PT-Bed Mobility Assessment Rolling Type of Rolling Log Rolling Level of Assist Standby Assistance Supine to Sit Supine to Sit Standby Assistance Sit to Supine Sit to Supine Standby Assistance PT-Transfer Assessment Sit to and From Stand Sit to and from Stand Standby Assistance Equipment Transfer Assistive Device Gait Belt,Front Wheeled Walker Orthotic/Prosthetic Devices or Brace: No Transfers Transfer Destination Toilet Transfer Technique ambulated Transfer Ability Level of Assist Standby Assistance Comments Mobility Comments checked on pt and pt trying to get up from the bed by herself but stated that she is stuck. pt wanting to use the toilet. positioned bed and instructed pt. pt completed supine to sit log roll SBA using bed rail and cues. completed sit to stand SBA and ambulated to the toilet using FWW SBA. completed toileting SBA. cues for safety as pt is sleepy. ambulated from the toilet towards the sink using FWW SBA and was able to maintain standing while completing handwashing. requested to go back to bed and ambulated to the bed using FWW SBA. sit to supine SBA. positioned in bed. call light and table placed within reach. Gait Assessment Gait Gait Assistance Required: Standby Assistance Distance (Feet) 25 Able to Maintain Weight Bearing Status Yes During Gait Assistive Devices Assistive Device Gait Belt,Front Wheeled Walker Orthotic/Prosthetic Devices or Brace: No Gait Deviations General Gait Pattern Decreased Stride Length, Decreased Feet Clearance Factors Limiting Gait Function Factors Limiting Gait Function Decreased Activity Tolerance, Decreased Strength,Limited Range of Motion,Pain,Poor Balance,Poor Safety Awareness M5 PT-IP Objective Assessments Start: 11/02/21 11:47 Freq: NEEDED Status: Active Protocol: Document 11/02/21 09:25 AB (Rec: 11/02/21 12:02 [facility]) Orientation Orientation/Cognition Level of Alertness Alert Orientation Name,Age,Birthday,Month,Date, Year,Day of Week,Place, Situation Language Function Ability No Deficits Noted Safety Awareness Decreased Safety Awareness Memory Description No Deficits Noted Gross Range of Motion Lower Extremity ROM Assessment Within Functional Limits Strength Lower Extremity Strength Hip 3+/5 Knee 4-/5 Coordination Assessment Gross Coordination Gross Coordination WNL Sensation Assessment Sensation Gross Sensation Right LE Impaired Sensation Description Numbness Comments Sensation Comments R big toe numbness per pt Muscle Tone Muscle Tone WNL Yes M6 PT-IP Treatment Start: 11/02/21 11:47 Freq: NEEDED Status: Active Protocol: Document 11/03/21 13:05 AB (Rec: 11/03/21 13:33 [facility]) Physical Therapy Treatment Education Education Provided Precautions,Safety M7 PT-IP Assessment and Plan Start: 11/02/21 11:47 Freq: NEEDED Status: Active Protocol: Document 11/03/21 13:05 AB (Rec: 11/03/21 13:33 [facility]) PT Summary Assessment and Plan Potential Rehabilitation Potential Good Summary Impairments Pain,ROM,Strength,Balance, Coordination,Sensation,Tone, Cognition,Bed Mobility, Transfers,Gait,Activity Tolerance Progress Towards Goals Progressing Toward Goals Assessment Summary pt requiring SBA with mobility and cues for safety. pt stated that she is sleepy and was not able to walk much this afternoon but able to walk to the toilet and back SBA using FWW. Pt may go home when medically stable. Goals Bed Mobility Goal Independent Transfer Goal Independent,Front Wheeled Walker Gait Goal Independent,Front Wheel Walker Gait Distance 200 Other Goals improve ambulation without AD SBA 250 ft up/down 5 steps L rail mod I Days to Meet Goals 5 Frequency of Treatment Frequency Of Treatment Twice a Day Treatment Plan Physical Therapy Treatment Plan Bed Mobility Training,Transfer Training,Gait Training, Therapeutic Exercise,Balance Retraining,Post Op Education, Discharge Planning,Hot or Cold Pack,Neuromuscular Re-ed, Coordination Retraining,Manual Therapy Precautions Lumbar Precautions Log Roll,No Twisting,Limit Bending,Lifting Restriction of 10 lbs,Gait Belt above Incisional Area Recommendations To Nursing Amount of Assist Needed Standby Assistance Discharge Recommendations PT Discharge Recommendations Home Transportation Needs at Discharge Private Vehicle
[2021-11-03] MEDS: SENNOSIDES 8.6 MG TABLET 17.2 MG PO (21:04)
[2021-11-03] MEDS: ATORVASTATIN 20 MG TABLET 80 MG PO (21:04)
--- NOTE | 2021-11-03 21:45 | PC.NURSE ---
PATIENT REFUSES TO HAVE NEW IV STARTED. PLAN TO D/C HOME TOMORROW
[2021-11-04] MEDS: OXYCODONE IR 5 MG TABLET 10 MG PO ×3 (00:31→08:54)
[2021-11-04 00:33] VITALS: BP 124/54; PULSE 79
[2021-11-04 04:07] VITALS: BP 126/44; PULSE 81; RESP 18; TEMP 36.8; O2SAT 93
[2021-11-04] MEDS: ACETAMINOPHEN 325 MG TABLET 650 MG PO (04:47)
[2021-11-04] MEDS: PANTOPRAZOLE DR 20 MG TABLET PO (06:03)
[2021-11-04] MEDS: DOCUSATE 100 MG CAPSULE PO (08:54)
[2021-11-04] MEDS: FENOFIBRATE, MICRONIZED 67 MG CAPSULE PO (08:54)
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
--- NOTE | 2021-11-04 09:55 | PT.IPTN ---
Current Diagnoses Intervertebral disc disorders with radiculopathy, lumbar region (11/01/21) Arthrodesis status (11/01/21) Surgery Performed Operation Date: 11/01/21 13:15 Actual Procedures p L4-5 TLIF, L5-S1 lumbar HWR, exploration of fusion, repeat laminectomy, reinsertion of hardware - Mendoza Wilkins MD Physical Therapy Treatment Note M2 PT-IP Current Condition Start: 11/02/21 11:47 Freq: NEEDED Status: Discharge Protocol: Document 11/02/21 09:25 AB (Rec: 11/02/21 12:02 AB [email or web address]) Physical Therapy Current Condition Current Condition Evaluation Date 11/02/21 Treatment Diagnosis s/p L4-5, L5S1 TLIF; difficulty in walking Onset Date 11/01/21 M3 PT-IP Subjective Start: 11/02/21 11:47 Freq: NEEDED Status: Discharge Protocol: Document 11/04/21 09:55 AB (Rec: 11/04/21 13:18 AB [email or web address]) Subjective Physical Therapy Visit Type Type Treatment Note Visit Start Time 09:55 Visit Stop Time 10:15 Total Visit Minutes 20 Number of RAIL DETECTOR CAR OPERATOR Visits 0 Physical Therapy Visit Comments Patient Comments agreeable to do PT Therapy Pain Assessment Pain When Pain Assessed At Rest Pain Present Pain Present Pain Reported Location Back Scale Used pain scale not stated Pain Management Techniques Modification of Treatment,Re- positioning,Timing of Activity with Medications M4 PT-IP Mobility and Gait Start: 11/02/21 11:47 Freq: NEEDED Status: Discharge Protocol: Document 11/04/21 09:55 AB (Rec: 11/04/21 13:18 AB [email or web address]) PT-Bed Mobility Assessment Rolling Type of Rolling Log Rolling Level of Assist Standby Assistance Supine to Sit Supine to Sit Standby Assistance PT-Transfer Assessment Sit to and From Stand Sit to and from Stand Standby Assistance,1 Person Assistance Equipment Transfer Assistive Device Front Wheeled Walker Orthotic/Prosthetic Devices or Brace: No Transfers Transfer Destination Toilet Transfer Technique ambulated Transfer Ability Level of Assist Standby Assistance Comments Mobility Comments completed supine to sit SBA. sit to stand SBA and ambulated to the toilet SBA. completed toileting SBA and ambulated using FWW towards the sink SBA and was able to complete handwashing and maintaining standing balance SBA. pt agreed to ambulate further and completed 125 ft using FWW SBA. pt requested to go back to bed. completed sit to supine SBA. positioned in bed. call light and table placed within reach. Gait Assessment Gait Gait Assistance Required: Standby Assistance Distance (Feet) 125 Able to Maintain Weight Bearing Status Yes During Gait Assistive Devices Assistive Device Gait Belt,Front Wheeled Walker Orthotic/Prosthetic Devices or Brace: No Gait Deviations General Gait Pattern Decreased Stride Length, Decreased Feet Clearance Factors Limiting Gait Function Factors Limiting Gait Function Decreased Activity Tolerance, Decreased Strength,Limited Range of Motion,Pain,Poor Balance,Poor Safety Awareness M5 PT-IP Objective Assessments Start: 11/02/21 11:47 Freq: NEEDED Status: Discharge Protocol: Document 11/02/21 09:25 AB (Rec: 11/02/21 12:02 [facility] Orientation Orientation/Cognition Level of Alertness Alert Orientation Name,Age,Birthday,Month,Date, Year,Day of Week,Place, Situation Language Function Ability No Deficits Noted Safety Awareness Decreased Safety Awareness Memory Description No Deficits Noted Gross Range of Motion Lower Extremity ROM Assessment Within Functional Limits Strength Lower Extremity Strength Hip 3+/5 Knee 4-/5 Coordination Assessment Gross Coordination Gross Coordination WNL Sensation Assessment Sensation Gross Sensation Right LE Impaired Sensation Description Numbness Comments Sensation Comments R big toe numbness per pt Muscle Tone Muscle Tone WNL Yes M6 PT-IP Treatment Start: 11/02/21 11:47 Freq: NEEDED Status: Discharge Protocol: Document 11/04/21 09:55 AB (Rec: 11/04/21 13:18 [facility] Physical Therapy Treatment Education Education Provided Safety M7 PT-IP Assessment and Plan Start: 11/02/21 11:47 Freq: NEEDED Status: Discharge Protocol: Document 11/04/21 09:55 AB (Rec: 11/04/21 13:18 [facility] PT Summary Assessment and Plan Potential Rehabilitation Potential Good Summary Impairments Pain,ROM,Strength,Balance, Coordination,Sensation,Tone, Cognition,Bed Mobility, Transfers,Gait,Activity Tolerance Assessment Summary pt requiring sBA with mobility and plans to go home. pt may go home when medically stable . Goals Bed Mobility Goal Independent Transfer Goal Independent,Front Wheeled Walker Gait Goal Independent,Front Wheel Walker Gait Distance 200 Other Goals improve ambulation without AD SBA 250 ft up/down 5 steps L rail mod I Days to Meet Goals 5 Frequency of Treatment Frequency Of Treatment Twice a Day Treatment Plan Physical Therapy Treatment Plan Bed Mobility Training,Transfer Training,Gait Training, Therapeutic Exercise,Balance Retraining,Post Op Education, Discharge Planning,Hot or Cold Pack,Neuromuscular Re-ed, Coordination Retraining,Manual Therapy Precautions Lumbar Precautions Log Roll,No Twisting,Limit Bending,Lifting Restriction of 10 lbs,Gait Belt above Incisional Area Recommendations To Nursing Amount of Assist Needed Standby Assistance Discharge Recommendations PT Discharge Recommendations Home Transportation Needs at Discharge Private Vehicle
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
--- NOTE | 2021-12-20 08:50 | PM.PREOP ---
Pre-operative Note COVID-19 COVID-19 status: Negative Result date/Date tested (Pos, Neg/Pending): 10/31/21 Criteria for continued procedure: Expected advancement of disease process, Possibility delay results in more complex future surgery or treatment, Increased loss of function, Continuing or worsening of significant or severe pain, Deterioration of the patient's condition or overall health, Delay expected to result in less-positive ultimate med/surg outcome and Non-surgical alternatives not available or appropriate per current SOC Interval Note History & Physical reviewed/Exam performed by Physician: Yes Changes to H&P: No
== END 2021-11-04 10:35 | disposition home or self-care (01) | DRG 454 ==
LOC: OR 11:36 → AC 11:38
PROVIDERS: Admitting Provider Orthopaedic Surgery Orthopaedic Surgery of the Spine; PCP Internal Medicine; Referring Provider Physical Medicine & Rehabilitation Pain Medicine; Visit Provider Orthopaedic Surgery Orthopaedic Surgery of the Spine
PROC: 0SG00AJ Fusion of Lumbar Vertebral Joint with Interbody Fusion Device, Posterior Approach, Anterior Column, Open Approach (ICD-10-PCS; principal; 2021-11-01 13:15)
DX: M48.061 Spinal stenosis, lumbar region without neurogenic claudication (principal); M96.0 Pseudarthrosis after fusion or arthrodesis; M43.17 Spondylolisthesis, lumbosacral region; M47.26 Other spondylosis with radiculopathy, lumbar region; K21.9 Gastro-esophageal reflux disease without esophagitis; I10 Essential (primary) hypertension; F17.210 Nicotine dependence, cigarettes, uncomplicated
CPT/HCPCS: 36415; 72100; 76000; 82962; 85014; 85018; 87635; 97116; 97161; 97165; 97530; 97535; 99406; C1776; C9803; C9290; J0171; J0690; J1100; J1170; J2250; J2405; J2704; J3010; J3410

== ENCOUNTER → 2024-06-04 15:02 | Outpatient (CLI) | payer MEDICARE, OTHER, SELFPAY ==
[2021-11-01 19:24] VITALS: BMI 33.7
--- NOTE | 2024-06-04 15:06 | DI.CT.S_ITS ---
PROCEDURE: CT LUMBAR SPINE WO CON INDICATIONS: SPINAL STENOSIS,LUMBAR REGION TECHNIQUE: Noncontrast 3 mm thick sections acquired from the T12 level to the sacrum. Sagittal and coronal reformats were constructed. For radiation dose reduction, the following was used: automated exposure control. COMPARISON: [facility] [place], CR, XR LUMBAR SPINE 2 OR 3 VIEWS, 12/06/2022, 15:48. [facility] [place], CR, XR LUMBAR SPINE 2 OR 3 VIEWS, 05/28/2024, 16:12. FINDINGS: Image quality: Excellent. Bones: Patient is status post posterior fusion and posterior decompression at L4 through S1 levels with surgical hardware and intervertebral spacers in place. The alignment of lumbar spine is anatomic. No acute vertebral body compression fractures. No suspicious lytic or blastic bony lesions. T12-L1: Unremarkable. L1-L2: Degenerative endplate changes are seen. No significant disc bulge, canal stenosis or neural foraminal narrowing. L2-L3: Vacuum disc phenomenon, loss of disc height and degenerative endplate changes are noted. Broad-based disc bulge and bilateral facet arthrosis with mild central canal stenosis and [id number] left-sided neural foraminal narrowing. L3-L4: Vacuum disc phenomenon and loss of disc height is seen. Degenerative endplate changes also noted. Broad-based disc bulge and bilateral facet arthrosis with hypertrophy of ligamentum flavum causing moderate central canal stenosis, moderate to severe left-sided neural foraminal narrowing and mild right-sided neural foraminal narrowing. L4-L5: Postsurgical changes are seen from prior right laminectomy. Bilateral facet arthrosis is noted. No significant central canal stenosis or neural foraminal narrowing. L5-S1: Post laminectomy changes are seen. There is bilateral facet arthrosis. No significant disc bulge, canal stenosis or neural foraminal narrowing. Soft tissues: No retroperitoneal masses or hematomas. Visualized aorta is normal in caliber. IMPRESSION: 1. Patient is status post posterior fusion at L4 through S1 levels. Alignment of lumbar spine is anatomic and is unchanged from prior studies. No evidence of hardware loosening or failure. No acute compression fracture or significant spondylolisthesis. 2. Degenerative disc disease and bilateral facet arthrosis at L1-2 through L3-4 levels causing various degrees of central canal stenosis and bilateral neural foraminal narrowing as described above. 3. No gross paraspinous soft tissue abnormalities. Dictated by: Sedrick Luu, M.D. on 06/04/2024 at 20:20 Approved by: Sedrick Luu M.D. on 06/04/2024 at 20:28
== END ==
PROVIDERS: PCP Family Medicine; Referring Provider Orthopaedic Surgery Orthopaedic Surgery of the Spine; Visit Provider Orthopaedic Surgery Orthopaedic Surgery of the Spine
DX: M48.062 Spinal stenosis, lumbar region with neurogenic claudication (principal); M51.36 Other intervertebral disc degeneration, lumbar region; M47.816 Spondylosis without myelopathy or radiculopathy, lumbar region; M47.817 Spondylosis without myelopathy or radiculopathy, lumbosacral region; Z98.1 Arthrodesis status
CPT/HCPCS: 72131

== ENCOUNTER → 2025-02-10 12:45 | Outpatient (CLI) | payer MEDICARE, OTHER, SELFPAY ==
[2021-11-01 19:24] VITALS: BMI 33.7
--- NOTE | 2025-02-10 12:49 | DI.MRI.S_ITS ---
PROCEDURE: MR KNEE RT WO CON INDICATIONS: PAIN IN RIGHT KNEE TECHNIQUE: Noncontrast sagittal PD fast spin echo and T2 fast spin echo with fat saturation, sagittal 3-D FLASH with fat saturation; coronal T1 spin echo and PD fast spin echo with fat saturation, and axial PD fast spin echo with fat saturation through the knee. COMPARISON: None. FINDINGS: Image quality: Excellent. Menisci: In the medial meniscus, there is a low-grade radial tear of the inner margin of the posterior horn (13:22). Mild extrusion the medial meniscus body. The lateral meniscus is unremarkable. Cruciate ligaments: The anterior and posterior cruciate ligaments appear intact. Medial structures: The medial collateral ligament appears intact. Lateral structures: Longitudinal split tear of the distal biceps femoris tendon. The fibular collateral ligament is unremarkable. The popliteus tendon is unremarkable. Anterior structures: The quadriceps and patellar tendons appear intact. Patellar alignment is normal. No femoral trochlear dysplasia or ventral trochlear prominence. No edema in the infrapatellar fat pad. Bones and cartilage: There is large area of full-thickness chondral loss in the median ridge, extending to the medial patellar facet, with mild subchondral cystic changes. The cartilage of the trochlea is unremarkable. In the medial compartment, there is mild chondral irregularity in the nonweightbearing portion of the medial femoral condyle, with mild subchondral marrow edema. There is marked subchondral marrow edema in the peripheral aspect of the weight-bearing portion of the medial femoral condyle, likely representing marrow contusion. In the lateral compartment, the cartilage is grossly well maintained. Joint space: Small knee effusion. No popliteal cyst. Mild tendinosis of the distal semimembranosus. No intra-articular body. IMPRESSION: 1. Low-grade radial tear of the inner margin of the posterior horn of the medial meniscus. 2. Longitudinal split tear of the distal biceps femoris tendon. 3. Moderate, patellofemoral compartment predominant chondrosis. 4. Marked marrow contusion the medial femoral condyle. No acute fracture. Dictated by: Bushra Sandoval M.D. on 02/10/2025 at 16:11 Approved by: Bushra Sandoval M.D. on 02/10/2025 at 16:25
== END ==
LOC: MRI 12:47
DX: S83.241A Other tear of medial meniscus, current injury, right knee, initial encounter (principal); S76.811A Strain of other specified muscles, fascia and tendons at thigh level, right thigh, initial encounter; M22.41 Chondromalacia patellae, right knee; S80.01XA Contusion of right knee, initial encounter; M25.561 Pain in right knee
CPT/HCPCS: 73721

== ENCOUNTER → 2025-11-04 15:29 | Outpatient (CLI) | payer MEDICARE, OTHER, SELFPAY ==
[2021-11-01 19:24] VITALS: BMI 33.7
--- NOTE | 2025-11-04 | DI.CT.S_ITS ---
PROCEDURE: CT LUNG LOW DOSE SCREENING INDICATIONS: Hx of smoking; lung cancer screening TECHNIQUE: Noncontrast 2.0-2.5 mm thick sections acquired from the pulmonary apices to the posterior costophrenic angles. 7 mm thick axial MIP, and 5 mm coronal and sagittal reformats were then acquired. For radiation dose reduction, the following was used: automated exposure control, adjustment of mA and/or kV according to patient size. COMPARISON: None. FINDINGS: Image quality: Diagnostic. Lower Neck: No enlarged lymph nodes. Thyroid: No thyroid nodules which require sonographic follow up, per consensus guidelines. Axillae: No enlarged lymph nodes. Chest Wall: Unremarkable. Bones: Unremarkable. Lungs and Pleura: No pneumothorax or pleural effusions. On image 72 of series 3 there is a 4 mm posterior right upper lobe pulmonary nodule and a subjacent 2 mm right upper lobe pulmonary nodule. No other pulmonary nodules identified. Heart: Heart size is normal. No pericardial effusion. Severe triple-vessel coronary artery calcifications. Thoracic Vessels: The aorta and pulmonary arteries demonstrate normal size. Mediastinum and Dariana: No enlarged lymph nodes. Esophagus: No wall thickening. No hiatal hernia. Upper Abdomen: Diffuse hepatic steatosis. IMPRESSION: Likely benign small pulmonary nodules, right upper lobe, 4 mm and 2 mm respectively. LUNG-RADS 2; continued annual screening, if eligible. Clinically Significant Non-pulmonary Findings: Severe coronary artery calcifications. Dictated by: Maximiliano Romeo M.D. on 11/05/2025 at 10:12 Approved by: Maximiliano Romeo M.D. on 11/05/2025 at 10:16
== END ==
DX: Z12.2 Encounter for screening for malignant neoplasm of respiratory organs (principal); F17.210 Nicotine dependence, cigarettes, uncomplicated; R91.8 Other nonspecific abnormal finding of lung field; I25.10 Atherosclerotic heart disease of native coronary artery without angina pectoris
CPT/HCPCS: 71271